=== PATIENT | male | born 1965 | race Caucasian/White ===

== ENCOUNTER 2019-12-06 11:02 | Inpatient (IN) | payer BC, SELFPAY ==
[2019-12-06 11:03] VITALS: BP 150/104; PULSE 103; RESP 16; TEMP 36.3; O2SAT 100; BMI 21.7
--- NOTE | 2019-12-06 11:28 | ED.VISSUMM ---
- ER Visit Summary Date of Service: 12/06/19 Chief Complaint: Requesting detox for alcoholism History of Present Illness: The patient is a [address] of alcohol abuse this is 4-6 shots per day. Denies ever being in detox. He was going to go through detox at [place] and left AGAINST MEDICAL ADVICE. Patient denies other complaints. He denies any nausea or vomiting or melena. Physical Examination: Middle-aged male no acute distress vital signs are stable afebrile. H EENT exam unremarkable. Neck nontender no lymphadenopathy. Lungs clear to auscultation bilaterally. Heart regular rhythm rate about 100. Abdomen soft nontender normal bowel sounds no peritoneal signs. Patient moving all 4 extremities. Neurovascular intact. Nontender. No edema. Neurologically is awake and alert with no focal motor deficits. Test Results: None Emergency Department Course and Treatment: Patient requesting inpatient detox for alcohol abuse. Treatment Plan: Hospitalist on page for admission. Disposition: Admission for detox Impression: Requesting inpatient detox for alcohol abuse This note was generated with [employer] dictation software. It may contain incorrect words, spelling, and punctuation that were not noted in review of the chart prior to signing
[2019-12-06 12:30] VITALS: BP 150/104; PULSE 103; RESP 16; TEMP 36.3; O2SAT 100
[2019-12-06 12:50] VITALS: BMI 20.9; BMI 21.0
[2019-12-06 13:07] LABS: Amphetamine Urine VISTA NEGATIVE (<1000 ng/mL); Barbiturate Urine VISTA POSITIVE (< 200 ng/mL); Benzodiazepine Urine VISTA NEGATIVE (< 200 ng/mL); Cocaine Urine VISTA NEGATIVE (< 300 ng/mL); Ecstacy Urine VISTA NEGATIVE (< 500 ng/mL); Methadone Urine VISTA NEGATIVE (< 300 ng/mL); PCP Urine VISTA NEGATIVE (< 25 ng/mL); THC Urine VISTA NEGATIVE (< 50 ng/mL); Vista UDS pH Range 5
[2019-12-06 13:38] VITALS: BP 151/92; PULSE 82; RESP 16; TEMP 36.7; O2SAT 100
[2019-12-06] MEDS: Phenobarbital 32.4 MG Tablet 64.8 MG PO ×3 (13:44→21:26)
--- NOTE | 2019-12-06 14:42 | HP.PCM_ITS ---
History of Present Illness Date of Admission: 12/06/19 Chief Complaint: EtOH withdrawal The patient is a 54 year old M with no significant past medical history presents for alcohol withdrawal and requesting detox. He drinks about 4-6 shots of vodka or tequila a day. He states that he has been a function alcoholic since his teenage years, his father was also a drinker though never considered to be an alcoholic. He states that he started drinking as a teenager because that is what they did at home and he would drink with his friends. He says that he is always been a drinker socially, never in isolation except for the last couple months. He was from his 2 years ago because of the drinking, she used to drink with him a lot and then she stopped. What caused him to have to go into rehab is because since coronavirus hit he has been working from home and it is been harder to stay away from the alcohol therefore the amount of alcohol that he has been drinking has increased. Because of this they have noticed a decrease in his quality of work and therefore discussion with his boss at request that he undergo rehab. He had tried to go to detox at [place] last week however he left [facility] because there is no TV in his room, and he had a roommate. He presents to the [facility] to undergo detox again. He states that he is only 1 time tried give up drinking and on day 3 of that attempt he had a seizure. Past Medical History Allergies No Known Allergies Allergy (Verified 12/06/19 11:05) Home Medications: Ambulatory Orders Medication Instructions Recorded Glucosam/Chond/Hyalu/Cf Borate 3 ea PO DAILY 12/06/19 [Move Free Joint Health Tablet] Ibuprofen 600 mg PO PRN PRN 12/06/19 Omeprazole Magnesium [Prilosec Otc] 20 mg PO DAILY 12/06/19 Surgical History: arthroscopy, knee, herniorrhaphy Smoking Status: Current every day smoker Tobacco Use: Cigarettes Alcohol: Heavy Drugs: None - *Family History Paternal History Items: Cancer Maternal History Items: Heart Disease, Hypertension Review of Systems Constitutional: Denies: Chills, Fever, Weight Change HEENT: Denies: Head Aches, Sinus Congestion, Sinus Drainage Cardiovascular: Denies: Chest Pain, Palpitations Respiratory: Denies: Cough, Shortness of breath at rest, Sputum production Gastrointestinal: Denies: Abdominal Pain, Nausea, Vomiting Genitourinary: Denies: Dysuria Musculoskeletal: Denies: Joint Pain, Joint Tenderness Skin: Denies: Rash, Wounds Neurological: Reports: Tremor. Denies: Focal weakness, Numbness, Tingling Psychiatric: Reports: Anxiety. Denies: Depression Hematologic/ Lymphatic: Denies: Easy Bruising, Easy Bleeding VTE Information - Inpt Only VTE Present on Admission: No - Physical Exam Vitals/I&O's: Vital Signs Temp Pulse Resp BP Pulse Ox 98.1 F 82 16 151/92 H 100 12/06/19 13:38 12/06/19 13:38 12/06/19 13:38 12/06/19 13:38 12/06/19 13:38 Oxygen Delivery Method Room Air Weight: 129 lb 13.636 oz Body Mass Index (BMI) 20.9 General: Alert, Oriented x3, Cooperative, No apparent distress HEENT: Atraumatic, PERRLA, EOMI, Normocephalic Oral: Moist Mucosa Neck: Supple, No JVD Lungs: Clear to auscultation, Normal air movement, No rhonchi, No wheeze, No rales Cardiovascular: Regular rate, Regular Rhythm, Normal S1, Normal S2, No murmurs Abdomen: Soft, Non Tender, Non-Distended, No Hepato-splenomegaly Extremities: No edema, Capillary Refill Less than 3 Seconds Skin: No rashes, No breakdown Neurological: Neuro grossly intact, Sensory exam intact to light touch and pain Psych/Mental Status: Anxious, Restless Laboratory Results 12/06/19 12:00: Urine Opiates Screen NEGATIVE, Urine Methadone Screen NEGATIVE, Ur Barbiturates Screen POSITIVE H, Ur Phencyclidine Scrn NEGATIVE, Ur Amphetamin es Screen NEGATIVE, U Methamphetamin-MDMA NEGATIVE, U Benzodiazepines Scrn NEGATIVE, Urine Cocaine Screen NEGATIVE, U Cannabinoids Screen NEGATIVE, Ur Drug Screen Comment Current Medications Acetaminophen (Tylenol) 650 mg PO Q6H PRN PRN PRN Reason: Pain Score 1-10/Temp > 100.7 F Dicyclomine HCl (Bentyl) 20 mg PO Q6H PRN PRN PRN Reason: abdominal discomfort Folic Acid (Folic Acid) 1 mg PO DAILY@0800 [facility] Gabapentin (Neurontin) 300 mg PO Q8H PRN PRN PRN Reason: moderate to severe anxiety Hydroxyzine Pamoate (Vistaril Pamoate Capsule) 50 mg PO Q4H PRN PRN PRN Reason: mild anxiety Loperamide HCl (Imodium) 2 mg PO Q4H PRN PRN PRN Reason: LOOSE STOOLS Melatonin (Melatonin) 3 mg PO QHS PRN PRN PRN Reason: INSOMNIA Ondansetron HCl (Zofran) 8 mg PO Q8H PRN PRN PRN Reason: NAUSEA Phenobarbital (Phenobarbital) 97.2 mg PO Q4H [facility]; Taper Stop: 12/10/19 21:59 Last Admin: 12/06/19 13:44 Dose: 97.2 mg Documented by: Thiamine HCl (Vitamin B1) 100 mg PO DAILYCM [facility] Trazodone HCl (Desyrel) 100 mg PO QHS PRN PRN Reason: INSOMNIA Assessment/Plan 1. Acute alcohol withdrawal/tobacco abuse -Currently with a CIWA of 4 -Continue with a phenobarb taper in the alcohol withdrawal protocol -He does smoke 4 to 5 cigarettes a day, but does not think he will need a nicotine patch. We did discuss cessation DVT: Ambulation Inpatient E&M: 30784 Init Hosp L2
--- NOTE | 2019-12-06 16:07 | ADDICTION ---
This copy writer met with patient in his room. He was alert/oriented x4 and presented with euthymic mood and affect. He behaved appropriately and participated minimally, but appropriately. He reported that he is not interested in follow-up treatment noting that I'm going to live with my parents. This copy writer attempted to engage patient in conversation regarding follow up treatment as he reported that his father drinks alcohol daily but patient noted He drinks tequila and I drink vodka so it'll be fine. This copy writer completed ASAM, AUDIT and MSE and will fax documentation to [facility].
[2019-12-06 18:00] VITALS: BP 145/93; PULSE 106; RESP 16; TEMP 36.9; O2SAT 100
[2019-12-06 21:24] VITALS: BP 141/86; PULSE 83; RESP 18; TEMP 36.8; O2SAT 97
[2019-12-06] MEDS: traZODone 100 MG Tablet PO (21:26)
[2019-12-07] MEDS: Phenobarbital 32.4 MG Tablet 64.8 MG PO ×6 (01:40→21:31)
[2019-12-07 01:43] VITALS: BP 131/79; PULSE 78; RESP 18; TEMP 36.9; O2SAT 100
[2019-12-07] MEDS: Acetaminophen 325 MG Tablet 650 MG PO (05:19)
[2019-12-07 05:21] VITALS: BP 124/80; PULSE 68; RESP 16; TEMP 36.7; O2SAT 99
[2019-12-07 08:29] VITALS: BP 126/83; PULSE 76; RESP 18; TEMP 36.6; O2SAT 100
[2019-12-07] MEDS: Folic Acid 1 MG Tablet PO (08:32)
[2019-12-07] MEDS: Thiamine Hydrochloride 100 MG Tablet PO (08:32)
[2019-12-07] MEDS: hydrOXYzine PAM 25 MG Capsule 50 MG PO ×4 (08:34→21:31)
--- NOTE | 2019-12-07 08:39 | PCM.PN.HOSP ---
Subjective: Doing well, no issues overnight Vitals/I&O's: Vital Signs Temp Pulse Resp BP Pulse Ox 97.9 F 76 18 126/83 H 100 12/07/19 08:29 12/07/19 08:29 12/07/19 08:29 12/07/19 08:29 12/07/19 08:29 Oxygen Delivery Method Room Air Weight: 129 lb 13.636 oz Body Mass Index (BMI) 20.9 Intake and Output for Last 24 Hours 12/05/19 12/06/19 12/07/19 23:59 23:59 23:59 Intake Total 1100 / 1100 Balance 1100 / 1100 General: Alert, Oriented x3, Cooperative, No apparent distress HEENT: Atraumatic, PERRLA, EOMI, Normocephalic Oral: Moist Mucosa Neck: Supple, No JVD Lungs: Clear to auscultation, Normal air movement, No rhonchi, No wheeze, No rales Cardiovascular: Regular rate, Regular Rhythm, Normal S1, Normal S2, No murmurs Abdomen: Soft, Non Tender, Non-Distended, No Hepato-splenomegaly Extremities: No edema, Capillary Refill Less than 3 Seconds Skin: No rashes, No breakdown Neurological: Neuro grossly intact, Sensory exam intact to light touch and pain Psych/Mental Status: Normal affect, appropriate Laboratory Results 12/06/19 12:00: Urine Opiates Screen NEGATIVE, Urine Methadone Screen NEGATIVE, Ur Barbiturates Screen POSITIVE H, Ur Phencyclidine Scrn NEGATIVE, Ur Amphetamines Screen NEGATIVE, U Methamphetamin-MDMA NEGATIVE, U Benzodiazepines Scrn NEGATIVE, Urine Cocaine Screen NEGATIVE, U Cannabinoids Screen NEGATIVE, Ur Drug Screen Comment Current Medications Acetaminophen (Tylenol) 650 mg PO Q6H PRN PRN PRN Reason: Pain Score 1-10/Temp > 100.7 F Last Admin: 12/07/19 05:19 Dose: 650 mg Documented by: Dicyclomine HCl (Bentyl) 20 mg PO Q6H PRN PRN PRN Reason: abdominal discomfort Folic Acid (Folic Acid) 1 mg PO DAILY@0800 [facility] Last Admin: 12/07/19 08:32 Dose: 1 mg Documented by: Gabapentin (Neurontin) 300 mg PO Q8H PRN PRN PRN Reason: moderate to severe anxiety Hydroxyzine Pamoate (Vistaril Pamoate Capsule) 50 mg PO Q4H PRN PRN PRN Reason: mild anxiety Last Admin: 12/07/19 08:34 Dose: 50 mg Documented by: Loperamide HCl (Imodium) 2 mg PO Q4H PRN PRN PRN Reason: LOOSE STOOLS Melatonin (Melatonin) 3 mg PO QHS PRN PRN PRN Reason: INSOMNIA Ondansetron HCl (Zofran) 8 mg PO Q8H PRN PRN PRN Reason: NAUSEA Phenobarbital (Phenobarbital) 97.2 mg PO Q4H [facility]; Taper Stop: 12/10/19 21:59 Last Admin: 12/07/19 05:19 Dose: 97.2 mg Documented by: Thiamine HCl (Vitamin B1) 100 mg PO DAILYCM [facility] Last Admin: 12/07/19 08:32 Dose: 100 mg Documented by: Trazodone HCl (Desyrel) 100 mg PO QHS PRN PRN Reason: INSOMNIA Last Admin: 12/06/19 21:26 Dose: 100 mg Documented by: STROKE Vital Signs/Narrative: Vital Signs Temp Pulse Resp BP Pulse Ox 12/07/19 08:29 97.9 F 76 18 126/83 H 100 12/07/19 05:21 98.1 F 68 16 124/80 H 99 Medical Necessity - Tobacco Use Smoking Status: Current every day smoker Tobacco Use: Cigarettes Assessment/Plan 1. Acute alcohol withdrawal/tobacco abuse -Currently with a CIWA of 4 -Continue with a phenobarb taper in the alcohol withdrawal protocol -He does smoke 4 to 5 cigarettes a day, but does not think he will need a nicotine patch. We did discuss cessation DVT: Ambulation Inpatient E&M: 97417 Subs Hosp L2
[2019-12-07 14:09] VITALS: BP 114/74; PULSE 77; RESP 16; TEMP 36.3; O2SAT 98
[2019-12-07 17:54] VITALS: BP 119/82; PULSE 74; RESP 16; TEMP 36.6; O2SAT 100
[2019-12-07 21:28] VITALS: BP 112/72; PULSE 71; RESP 16; TEMP 36.7; O2SAT 97
[2019-12-07] MEDS: traZODone 100 MG Tablet PO (21:31)
[2019-12-08 02:00] VITALS: BP 128/87; PULSE 72; RESP 16; TEMP 36.7; O2SAT 100
[2019-12-08] MEDS: Phenobarbital 32.4 MG Tablet 64.8 MG PO ×6 (02:14→21:22)
[2019-12-08] MEDS: hydrOXYzine PAM 25 MG Capsule 50 MG PO ×4 (02:15→21:22)
[2019-12-08] MEDS: Folic Acid 1 MG Tablet PO (07:38)
[2019-12-08] MEDS: Thiamine Hydrochloride 100 MG Tablet PO (07:38)
[2019-12-08 07:41] VITALS: BP 121/84; PULSE 77; RESP 16; TEMP 36.7; O2SAT 100
--- NOTE | 2019-12-08 08:57 | ADDICTION ---
Patient requested to meet with this justowriter operator to schedule appointment with Becki for follow up after completing medical withdrawal management tomorrow 12/08/2019. He is scheduled for an initial appointment on 12/14/2019 which is the first available appointment. He is amiable to this appointment time and date. He is considering attending AA meetings but is not able to commit to this at this time.
--- NOTE | 2019-12-08 09:32 | PN_ITS ---
Subjective: Doing well, no issues overnight Vitals/I&O's: Vital Signs Temp Pulse Resp BP Pulse Ox 98.0 F 77 16 121/84 H 100 12/08/19 07:41 12/08/19 07:41 12/08/19 07:41 12/08/19 07:41 12/08/19 07:41 Oxygen Delivery Method Room Air Weight: 129 lb 13.636 oz Body Mass Index (BMI) 20.9 Intake and Output for Last 24 Hours 12/06/19 12/07/19 12/08/19 23:59 23:59 23:59 Intake Total 2049 900 / 900 Balance 2049 900 / 900 General: Alert, Oriented x3, Cooperative, No apparent distress HEENT: Atraumatic, PERRLA, EOMI, Normocephalic Oral: Moist Mucosa Neck: Supple, No JVD Lungs: Clear to auscultation, Normal air movement, No rhonchi, No wheeze, No rales Cardiovascular: Regular rate, Regular Rhythm, Normal S1, Normal S2, No murmurs Abdomen: Soft, Non Tender, Non-Distended, No Hepato-splenomegaly Extremities: No edema, Capillary Refill Less than 3 Seconds Skin: No rashes, No breakdown Neurological: Neuro grossly intact, Sensory exam intact to light touch and pain Psych/Mental Status: Normal affect, appropriate Current Medications Acetaminophen (Tylenol) 650 mg PO Q6H PRN PRN PRN Reason: Pain Score 1-10/Temp > 100.7 F Last Admin: 12/07/19 05:19 Dose: 650 mg Documented by: Dicyclomine HCl (Bentyl) 20 mg PO Q6H PRN PRN PRN Reason: abdominal discomfort Folic Acid (Folic Acid) 1 mg PO DAILY@0800 [facility] Last Admin: 12/08/19 07:38 Dose: 1 mg Documented by: Gabapentin (Neurontin) 300 mg PO Q8H PRN PRN PRN Reason: moderate to severe anxiety Hydroxyzine Pamoate (Vistaril Pamoate Capsule) 50 mg PO Q4H PRN PRN PRN Reason: mild anxiety Last Admin: 12/08/19 06:21 Dose: 50 mg Documented by: Loperamide HCl (Imodium) 2 mg PO Q4H PRN PRN PRN Reason: LOOSE STOOLS Melatonin (Melatonin) 3 mg PO QHS PRN PRN PRN Reason: INSOMNIA Ondansetron HCl (Zofran) 8 mg PO Q8H PRN PRN PRN Reason: NAUSEA Phenobarbital (Phenobarbital) 64.8 mg PO Q4H [facility]; Taper Stop: 12/10/19 21:59 Last Admin: 12/08/19 06:21 Dose: 64.8 mg Documented by: Thiamine HCl (Vitamin B1) 100 mg PO DAILYCM [facility] Last Admin: 12/08/19 07:38 Dose: 100 mg Documented by: Trazodone HCl (Desyrel) 100 mg PO QHS PRN PRN Reason: INSOMNIA Last Admin: 12/07/19 21:31 Dose: 100 mg Documented by: STROKE Vital Signs/Narrative: Vital Signs Temp Pulse Resp BP Pulse Ox 12/08/19 07:41 98.0 F 77 16 121/84 H 100 Medical Necessity - Tobacco Use Smoking Status: Current every day smoker Tobacco Use: Cigarettes Assessment/Plan 1. Acute alcohol withdrawal/tobacco abuse -Currently with a CIWA of 4 -Continue with a phenobarb taper in the alcohol withdrawal protocol -He does smoke 4 to 5 cigarettes a day, but does not think he will need a nicotine patch. We did discuss cessation DVT: Ambulation Inpatient E&M: 22158 Subs Hosp L2
[2019-12-08 13:43] VITALS: BP 108/77; PULSE 81; RESP 16; TEMP 36.6; O2SAT 96
[2019-12-08] MEDS: Gabapentin 300 MG Capsule PO (13:49)
[2019-12-08] MEDS: Acetaminophen 325 MG Tablet 650 MG PO (13:50)
[2019-12-08 17:54] VITALS: BP 126/81; PULSE 71; RESP 16; TEMP 36.6; O2SAT 97
[2019-12-08] MEDS: traZODone 100 MG Tablet PO (21:22)
[2019-12-09] MEDS: Phenobarbital 32.4 MG Tablet 64.8 MG PO ×2 (03:55→08:49)
[2019-12-09 04:00] VITALS: BP 113/76; PULSE 72; RESP 16; TEMP 36.3; O2SAT 94
[2019-12-09] MEDS: hydrOXYzine PAM 25 MG Capsule 50 MG PO (04:00)
--- NOTE | 2019-12-09 07:13 | PCM.DC ---
You will use the following diet at home:: Regular Your food should be the consistency of: Regular Your liquids should be the consistency of: Regular/Thin Discharge Activity: Return to Normal Activity Call your doctor if you observe: Fever of 101 or Higher, Shortness of breath, Dizziness, Fainting spells, Swelling in the ankles, Chest pain, Increased palpitations (irregular heartbeat) Allergies/Adverse Reactions: Allergies No Known Allergies Allergy (Verified 12/06/19 11:05) Medications to take at Discharge Glucosam/Chond/Hyalu/Cf Borate [Move Free Joint Health Tablet] 3 ea PO DAILY 12/06/19 Ibuprofen 600 mg PO PRN PRN 12/06/19 Omeprazole Magnesium [Prilosec Otc] 20 mg PO DAILY 12/06/19 Primary Care Physician: Marianne Olivares NP-C [Primary Care Provider] - Please follow up with your Primary Care Physician in: 3-5 days Test Results: Test results from this visit will be discussed in further detail at your follow-up appointment, if applicable. Please Follow Up With: 180 When: Friday
--- NOTE | 2019-12-09 07:13 | PCM.DC.SUM ---
Discharge Date and Diagnosis Date of Admission: 12/06/19 Date of Discharge: 12/09/19 Hospital Course and Treatment Imaging Results: None Consults: 180 Operations: None Procedures: None Summary of Care Provided: Per HPI: The patient is a 54 year old M with no significant past medical history presents for alcohol withdrawal and requesting detox. He drinks about 4-6 shots of vodka or tequila a day. He states that he has been a function alcoholic since his teenage years, his father was also a drinker though never considered to be an alcoholic. He states that he started drinking as a teenager because that is what they did at home and he would drink with his friends. He says that he is always been a drinker socially, never in isolation except for the last couple months. He was from his 2 years ago because of the drinking, she used to drink with him a lot and then she stopped. What caused him to have to go into rehab is because since coronavirus hit he has been working from home and it is been harder to stay away from the alcohol therefore the amount of alcohol that he has been drinking has increased. Because of this they have noticed a decrease in his quality of work and therefore discussion with his boss at request that he undergo rehab. He had tried to go to detox at [place] last week however he left [facility] because there is no TV in his room, and he had a roommate. He presents to the [facility] to undergo detox again. He states that he is only 1 time tried give up drinking and on day 3 of that attempt he had a seizure. Hospital Course: 1. Acute alcohol withdrawal/tobacco [id number]-old male presents to the hospital with alcohol withdrawal. He states that since working from home with coronavirus yesterday drinking more which has caused his work to suffer. States that he is feeling much better and has an appointment with 180 on Friday. His CIWA was a 0-1 today and he would like to go home. I discussed with him the plan for discharge today and he expressed understanding of the risks and benefits. - Physical Exam Vitals/I&O's: Vital Signs Temp Pulse Resp BP Pulse Ox 97.4 F L 72 16 113/76 94 12/09/19 04:00 12/09/19 04:00 12/09/19 04:00 12/09/19 04:00 12/09/19 04:00 Oxygen Delivery Method Room Air Weight: 129 lb 13.636 oz Body Mass Index (BMI) 20.9 Intake and Output for Last 24 Hours 12/07/19 12/08/19 12/09/19 23:59 23:59 23:59 Intake Total 2049 Balance 2049 General: Alert, Oriented x3, Cooperative, No apparent distress HEENT: Atraumatic, PERRLA, EOMI, Normocephalic Oral: Moist Mucosa Neck: Supple, No JVD Lungs: Clear to auscultation, Normal air movement, No rhonchi, No wheeze, No rales Cardiovascular: Regular rate, Regular Rhythm, Normal S1, Normal S2, No murmurs Abdomen: Soft, Non Tender, Non-Distended, No Hepato-splenomegaly Extremities: No edema, Capillary Refill Less than 3 Seconds Skin: No rashes, No breakdown Neurological: Neuro grossly intact, Sensory exam intact to light touch and pain Psych/Mental Status: Normal affect, appropriate Current Medications Acetaminophen (Tylenol) 650 mg PO Q6H PRN PRN PRN Reason: Pain Score 1-10/Temp > 100.7 F Last Admin: 12/08/19 13:50 Dose: 650 mg Documented by: Dicyclomine HCl (Bentyl) 20 mg PO Q6H PRN PRN PRN Reason: abdominal discomfort Folic Acid (Folic Acid) 1 mg PO DAILY@0800 [facility] Last Admin: 12/08/19 07:38 Dose: 1 mg Documented by: Gabapentin (Neurontin) 300 mg PO Q8H PRN PRN PRN Reason: moderate to severe anxiety Last Admin: 12/08/19 13:49 Dose: 300 mg Documented by: Hydroxyzine Pamoate (Vistaril Pamoate Capsule) 50 mg PO Q4H PRN PRN PRN Reason: mild anxiety Last Admin: 12/09/19 04:00 Dose: 50 mg Documented by: Loperamide HCl (Imodium) 2 mg PO Q4H PRN PRN PRN Reason: LOOSE STOOLS Melatonin (Melatonin) 3 mg PO QHS PRN PRN PRN Reason: INSOMNIA Ondansetron HCl (Zofran) 8 mg PO Q8H PRN PRN PRN Reason: NAUSEA Phenobarbital (Phenobarbital) 64.8 mg PO Q6H [facility]; Taper Stop: 12/10/19 21:59 Last Admin: 12/09/19 03:55 Dose: 64.8 mg Documented by: Thiamine HCl (Vitamin B1) 100 mg PO DAILYCM [facility] Last Admin: 12/08/19 07:38 Dose: 100 mg Documented by: Trazodone HCl (Desyrel) 100 mg PO QHS PRN PRN Reason: INSOMNIA Last Admin: 12/08/19 21:22 Dose: 100 mg Documented by: Discharge Activity: Return to Normal Activity Call your doctor if you observe: Fever of 101 or Higher, Shortness of breath, Dizziness, Fainting spells, Swelling in the ankles, Chest pain, Increased palpitations (irregular heartbeat) Home Medications: Medications to take at Discharge Glucosam/Chond/Hyalu/Cf Borate [Move Free Joint Health Tablet] 3 ea PO DAILY 12/06/19 Ibuprofen 600 mg PO PRN PRN 12/06/19 Omeprazole Magnesium [Prilosec Otc] 20 mg PO DAILY 12/06/19 Primary Care Physician: Marianne Olivares NP-C [Primary Care Provider] - Please follow up with your Primary Care Physician in: 3-5 days Please Follow Up With: 180 When: Friday Disposition: Home Minutes spent on discharge:: 35 Patient Condition:: Stable Medical Necessity - Tobacco Use Smoking Status: Current every day smoker Tobacco Use: Cigarettes Meaningful Use Info Meaningful Use Diagnoses (Choose all that apply): None applicable Inpatient E&M: 77524 Disch Hosp
[2019-12-09 08:47] VITALS: BP 116/72; PULSE 85; RESP 18; TEMP 36.9; O2SAT 100
[2019-12-09] MEDS: Folic Acid 1 MG Tablet PO (08:49)
[2019-12-09] MEDS: Thiamine Hydrochloride 100 MG Tablet PO (08:49)
== END 2019-12-09 09:25 | disposition home or self-care (01) | DRG 897 ==
LOC: ED 11:37 → MS3 11:52
PROVIDERS: Admitting Provider Family Medicine; Emergency Provider Emergency Medicine; PCP Registered Nurse; Visit Provider Family Medicine
DX: F10.239 Alcohol dependence with withdrawal, unspecified (principal); F17.210 Nicotine dependence, cigarettes, uncomplicated; Z82.49 Family history of ischemic heart disease and other diseases of the circulatory system; Y90.9 Presence of alcohol in blood, level not specified
CPT/HCPCS: 80307; 99283; 99406

== ENCOUNTER 2020-08-31 12:27 | Inpatient (IN) | payer OTHER, SELFPAY ==
[2019-12-06 12:50] VITALS: BMI 20.9
[2020-08-31] VITALS (8 sets, daily range): BP systolic 117–149; BP diastolic 69–97; PULSE 92–116; RESP 16–18; TEMP 35.3–37.3; O2SAT 99–100; BMI 20.9; BMI 21.9
--- NOTE | 2020-08-31 12:55 | EKG12_ITS ---
Test Reason : DETOX Blood Pressure : / mmHG Vent. Rate : 092 BPM Atrial Rate : 092 BPM P-R Int : 134 ms QRS Dur : 084 ms QT Int : 370 ms P-R-T Axes : 050 -14 -04 degrees QTc Int : 457 ms Normal sinus rhythm Nonspecific ST abnormality Abnormal ECG Confirmed by DIRK CASTREJON, JAMES ([id number]), commercial production editor JAMILA KIRBY ([id number]) on 09/04/2020 2:54:13 PM Referred By: Confirmed By:JAMES CAVAZOS MD
--- NOTE | 2020-08-31 12:55 | CT_ITS ---
STUDY: CT BRAIN WITHOUT CONTRAST REASON FOR EXAM: Male, 54 years old. Fall due to dizziness. RADIATION DOSAGE (If Supplied By Facility): CTDIvol = ( 44.99 ) mGy, DLP = ( 796.11 ) mGycm TECHNIQUE: Transaxial CT imaging of the brain was performed without administration of intravenous contrast material. Individualized dose optimization techniques were used for this CT. COMPARISON: No relevant priors. FINDINGS: Normal soft tissue structures. Normal calvarium. There is mild cerebral atrophy with widening of the extra-axial spaces and ventricular dilatation. Normal white matter tracts of the cerebral hemispheres. Normal basal ganglia and thalami. Normal brainstem. Normal cerebellum. There is no intracranial hemorrhage. There are no findings of an acute ischemic infarction. Normal visualized paranasal sinuses. CT/Brain/Head without Contrast IMPRESSION: Chronic involutional changes of the brain. Electronically Signed: Abram Kahn MD at 14:19 EDT , Service support ,
--- NOTE | 2020-08-31 13:10 | EDS_ITS ---
HPI History of Present Illness Chief Complaint: Substance Abuse Narrative Narrative: 54-year-old male presenting with dizziness requesting alcohol detox. Patient states he was trying to find the main entrance to the hospital felt dizzy and fell. He denies loss of consciousness. Denies chest pain or shortness of breath. States his last drink was yesterday. He drinks 5-6 shots of vodka per day. Denies drug use. PFSH PFSH Medical History ETOH abuse Home Medications [id number]-btrki-aetqz-CF borate 3 ea PO DAILY 12/06/19 [History Last Taken 12/06/19] ibuprofen 600 mg PO PRN PRN 12/06/19 [History Last Taken 11/06/19] omeprazole magnesium 20 mg PO DAILY 12/06/19 [History Last Taken 12/06/19] Allergy/AdvReac Type Severity Reaction Status Date / Time No Known Allergies Allergy Verified 08/31/20 12:28 Surgical History History of appendectomy Social History Smoking Status: Current every day smoker ROS ROS ED Constitutional Constitutional ED: Denies fever(s) Eyes Eyes: Denies change in vision ENT ENT ED: Denies rhinorrhea or sore throat Cardiovascular Cardiovascular: Denies chest pain or palpitations Respiratory/Chest Respiratory/Chest: Denies cough or dyspnea Gastrointestinal Gastrointestinal: Denies abdominal pain, diarrhea, nausea or vomiting Genitourinary Genitourinary ED: Denies dysuria Musculoskeletal Musculoskeletal: Denies myalgias Integumentary Denies rash Neurologic Neurologic: Denies headache(s) Psychiatric Psychiatric: Denies suicidal thoughts EXAM Physical Exam Const Vital Signs: 08/31/20 12:28 08/31/20 15:57 Temperature 95.6 F L Temperature Source Temporal Pulse Rate 116 H 94 Respiratory Rate 18 Blood Pressure 117/87 H 149/97 H Blood Pressure Mean 97 114 Pulse Ox 99 100 Oxygen Delivery Method Room Air Room Air Positive well nourished and well developed General Appearance ED: well developed HEENT Reports normocephalic and head/scalp atraumatic Eyes PERRL and EOMs intact bilaterally General Eye ED: Yes scleral icterus Neck supple General: Negative for tenderness Chest Wall inspection of chest normal Resp normal respiratory effort and clear to auscultation bilaterally Cardio regular rate and regular rhythm GI non-tender and non-distended Palpation: soft; Negative for guarding or rebound tenderness present no CVA tenderness Extremity normal to inspection Neuro oriented x3 Sensorium / Orientation: alert Psych mental status grossly normal Skin General Skin Exam: jaundice MDM MDM MDM Narrative Medical decision making narrative: Patient has jaundice and scleral icterus. He does not recall how long this has been going on. He states he does not look in the mirror. He states his last drink was yesterday. Lab work shows metabolic acidosis and elevated liver enzymes. Discussed with hospitalist who recommends CT abdomen pelvis before admission. Patient will be signed out to the oncoming physician. Lab Data Attestation: I reviewed the patient's lab results. Labs: Laboratory Results - last 24 hr 08/31/20 08/31/20 08/31/20 13:30 13:30 13:30 WBC 6.8 RBC 2.77 L Hgb 9.7 L Hct 29.4 L MCV 106.1 H MCH 35.0 H MCHC 33.0 RDW Std Deviation 72.0 H RDW Coeff of Adia 18.4 H Plt Count 156 MPV 10.3 Immature Gran % (Auto) 4.700 H Neut % (Auto) 73.0 H Lymph % (Auto) 10.2 L [place] % (Auto) 10.5 H Eos % (Auto) 0.1 Baso % (Auto) 1.5 H Absolute Neuts (auto) 5.0 Absolute Lymphs (auto) 0.70 L Nucleated RBC % 0.6 Anisocytosis 1+ Sodium Cancelled Potassium Cancelled Chloride Cancelled Carbon Dioxide Cancelled Anion Gap Cancelled BUN Cancelled Creatinine Cancelled Estim Creat Clear Calc Cancelled Est GFR (MDRD) Af Amer Cancelled Est GFR (MDRD) Non-Af Cancelled BUN/Creatinine Ratio Cancelled Glucose Cancelled Calcium Cancelled Total Bilirubin Cancelled Direct Bilirubin Cancelled AST Cancelled ALT Cancelled Alkaline Phosphatase Cancelled Total Protein Cancelled Albumin Cancelled Globulin Cancelled Ethyl Alcohol 163.0 08/31/20 14:30 WBC RBC Hgb Hct MCV MCH MCHC RDW Std Deviation RDW Coeff of Adia Plt Count MPV Immature Gran % (Auto) Neut % (Auto) Lymph % (Auto) [place] % (Auto) Eos % (Auto) Baso % (Auto) Absolute Neuts (auto) Absolute Lymphs (auto) Nucleated RBC % Anisocytosis Sodium 133 L Potassium 3.1 L Chloride 93 L Carbon Dioxide 17.0 L Anion Gap 23 H BUN 8 Creatinine 0.74 Estim Creat Clear Calc 97.39 Est GFR (MDRD) Af Amer 143 Est GFR (MDRD) Non-Af 118 BUN/Creatinine Ratio 10.8 Glucose 67 L Calcium 7.7 L Total Bilirubin 11.20 H Direct Bilirubin 9.16 H AST 378 H ALT 60 Alkaline Phosphatase 177 H Total Protein 6.5 Albumin 2.3 L Globulin 4.2 Ethyl Alcohol Radiography Diagnostic Testing: Radiology Impression Brain CT 08/31/20 12:55 IMPRESSION: Chronic involutional changes of the brain. Electronically Signed: Abram Kahn MD at 14:19 EDT , Service support , EKG Initial EKG: Attestation: I personally reviewed and interpreted this EKG as follows: Interpretation: Sinus Rhythm and No Acute Injury Pattern Prior EKG tracings: not available for review Discharge Plan Triage Chief Complaint: Substance Abuse Other Complaint: Fall ED Provider: Minerva Coello Dx/Rx/DC Orders Clinical Impression: Alcohol dependence, Elevated liver enzymes Prescriptions: No Action ibuprofen 200 MG tablet 600 mg PO PRN PRN (Reason: Pain Or Fever) RF: 0 omeprazole magnesium 20 MG tablet,delayed release (DR/EC) 20 mg PO DAILY RF: 0 qqhcqopp-jjszk-gexly-CF borate 1 EACH tablet 3 ea PO DAILY RF: 0 Primary Care Provider: Marianne Olivares NP Referrals: Marianne Olivares NP, [employer] [Primary Care Provider] -
[2020-08-31] MEDS: 0.9% Normal Saline 1,000 ML 1000 ML IV (13:55)
[2020-08-31 14:10] LABS: Basophil% 1.5 % (0-1); Eosinophil# 0.01 X10^3/uL; Eosinophils% 0.1 % (0-5); Hematocrit 29.4 % (40-54); Hemoglobin 9.7 g/dL (13.0-16.5); Lymphocyte % 10.2 % (19-41); Mean Corpuscular Volume 106.1 fL (80-94); Mean Platelet Vol. 10.3 fl (6.2-12.0); Monocyte# 0.72 X10^3/uL; Monocyte% 10.5 % (0-10); NRBC Flagged by Analyzer 0.6 % (0-5); Neutrophil # 4.98 X10^3/uL (2.7-7.7); POSITIVE MORPHOLOGY YES; Platelet Count 156 K/mm3 (150-450); RBC Distribution Width CV 18.4 % (11.6-14.6); Red Blood Count 2.77 M/mm3 (4.6-6.2); White Blood Count 6.8 K/mm3 (4.4-11.0)
[2020-08-31 14:13] LABS: Differential Indicated SCAN CRITERIA MET
--- NOTE | 2020-08-31 14:16 | NURSING ---
NEED A NEW GREEN TOP, HEMOLIZED
[2020-08-31 14:42] LABS: Anisocytosis 1+
[2020-08-31 14:53] LABS: AST(SGOT) 378 U/L (15-37); Alanine Aminotransfer ALT/SGPT 60 U/L (16-61); Albumin, Serum 2.3 g/dL (3.2-5.0); Alkaline Phosphatase 177 U/L (45-117); Anion Gap 23 (5-15); BUN 8 mg/dL (7-18); BUN/Creat Ratio 10.8 RATIO (10-20); Bilirubin, Direct 9.16 mg/dL (0.00-0.30); Calcium,Total 7.7 mg/dL (8.5-10.1); Chloride 93 mmol/L (98-107); Creatinine, Serum 0.74 mg/dL (0.70-1.30); EST Glomerular Filtration Rate 118 mL/min (>60); Est Glom Filt Rate - Afr Amer 143 mL/min (>60); Estimated Creatinine Clearance 97.39 ml/min; Globulin 4.2 g/dL (2.2-4.2); Glucose 67 mg/dL (74-106); Potassium 3.1 mmol/L (3.5-5.1); Protein, Total 6.5 g/dL (6.4-8.2); Sodium Level 133 mmol/L (136-145)
--- NOTE | 2020-08-31 16:01 | CM.ED ---
Addendum entered by Alexandria Angel 08/31/20 21:01: YASMANI called Anderson at [facility] and advised that patient was admitted to [facility] program and room number. Alexandria STEPHENS Original Note: YASMANI Note YASMANI Referral: Case Find Alcohol Detox Reason for Referral: Patient wants [facility] program YASMANI met with patient. He indicated he is here to detox from alcohol. He reports he is familiar with the [facility] program. He stated he is aware of the program. Patient said he has never been in the [facility] program before. Patient was educated on contract, no visitors or phones. Patient verbalized understanding and again voiced desire for program. YASMANI called Rosa at [facility] and left a confidental voice mail for her about patient wanting [facility] but may need to be medically stable. YASMANI will continue to update. YASMANI will follow. Alexandria STEPHENS
--- NOTE | 2020-08-31 16:35 | CT_ITS ---
STUDY: CT ABDOMEN AND PELVIS WITH CONTRAST REASON FOR EXAM: Male, 54 years old. Jaundice. Abdominal pain. RADIATION DOSAGE (If Supplied By Facility): CTDIvol = ( 23.12 ) mGy, DLP = ( 561.43 ) mGycm TECHNIQUE: Transaxial images were obtained from the dome of the diaphragm to the symphysis pubis without oral contrast. IV 100mL Isovue-370 was administered. Sagittal and coronal images were reconstructed. Individualized dose optimization techniques were used for this CT. COMPARISON: None. FINDINGS: The visualized lung bases are unremarkable. The visualized portions of the heart are within normal limits. The liver is markedly enlarged and diffusely fatty infiltrated. There is no evidence of intrahepatic mass. The gallbladder is well distended. There is a single gallstone in the gallbladder fundus measuring 3 mm in diameter. There is no wall thickening or inflammatory change. There is no biliary ductal dilatation or choledocholithiasis. Normal spleen. Normal pancreas. Normal bilateral adrenal glands. Normal right kidney. Normal left kidney. Normal bilateral ureters. The stomach is nondistended with uniformly thickened kaplan. Normal small intestine. There is descending and sigmoid colon diverticuli. There is mild wall thickening and pericolonic stranding in the proximal sigmoid colon suggesting mild diverticulitis. Scattered diverticuli are seen in the more proximal colon without inflammatory change. There is non-visualization of the appendix. There is diffuse atherosclerotic calcification of the abdominal aorta, without a demonstrated aneurysm. Normal inferior vena cava. Normal retroperitoneum. Normal urinary bladder. Prostate is minimally enlarged. There is no pelvic lymphadenopathy. No free air or free fluid seen within the peritoneal cavity. Normal abdominal wall. There are diffuse degenerative changes of the visualized lumbar spine. CT/Abdomen/Pelvis W IV Cont ONLY IMPRESSION: 1. Mild sigmoid diverticulitis without complication. 2. Markedly enlarged fatty infiltrated liver without mass. 3. Thick-walled nondistended stomach. This will be better evaluated by endoscopy or upper GI if there is clinical suspicion for gastric abnormality. 4. Gallstones without acute cholecystitis. 5. Mildly enlarged prostate. 6. Atherosclerotic changes of the aorta. 7. Degenerative changes of the lumbar spine. Electronically Signed: Turner Roberts DO at 16:57 EDT Tel [phone], Service support ,
[2020-08-31 17:06] LABS: Amphetamine Urine VISTA NEGATIVE (<1000 ng/mL); Barbiturate Urine VISTA NEGATIVE (< 200 ng/mL); Benzodiazepine Urine VISTA NEGATIVE (< 200 ng/mL); Cocaine Urine VISTA NEGATIVE (< 300 ng/mL); Ecstacy Urine VISTA NEGATIVE (< 500 ng/mL); Methadone Urine VISTA NEGATIVE (< 300 ng/mL); PCP Urine VISTA NEGATIVE (< 25 ng/mL); THC Urine VISTA NEGATIVE (< 50 ng/mL); Vista UDS pH Range 6
--- NOTE | 2020-08-31 18:36 | PCM.HP.STD ---
Documented by User: Nicholas SMITH 08/31/20 19:03 HPI - General HPI Narrative Patient is a 54-year-old male who presents to the ED at [facility] on 08/31/2020 requesting medical stabilization for alcohol detoxification. Patient endorses a 40+ year drinking history, he currently drinks 5-6 shots per day of either tequila or vodka. Patient states that he does not drink any beer or wine. Patient states his last time drinking was yesterday. Denies any other illicit or prescription drug use. Of note, patient suffered a minor fall when trying to get to the ED today. Patient states that he was trying to find the main hospital entrance felt dizzy and fell. Patient denies any trauma related to the fall and states that he was close to an area of grass and when he began feeling dizzy he made his way over to the grass and laid himself down on the ground. Patient also endorses a 5-day history of having tea colored urine. CBC in the ED demonstrated a hemoglobin of 9.7. BMP demonstrated hyponatremia at 133 and hypokalemia at 3.1. Patient's T bili was mildly elevated at 11.2 and AST was 378. Urine toxicology was negative for any illicit substances. Ethyl alcohol still pending. Brain CT obtained in the ED demonstrated only chronic involutional changes of the brain and demonstrated no acute trauma. CT of the abdomen and pelvis demonstrated mild sigmoid diverticulitis without complication, markedly enlarged fatty liver without mass, gallstones without acute cholecystitis, mildly enlarged prostate atherosclerotic changes of the aorta and degenerative changes of the lumbar spine. Patient will be admitted for medical stabilization secondary to alcohol detox, as well as work-up for anemia and management of diverticulitis. PFSH Medical History ETOH abuse Home Medications [id number]-CF borate 3 ea PO DAILY 12/06/19 [History Last Taken 12/06/19] ibuprofen 600 mg PO PRN PRN 12/06/19 [History Last Taken 11/06/19] omeprazole magnesium 20 mg PO DAILY 12/06/19 [History Last Taken 12/06/19] Allergy/AdvReac Type Severity Reaction Status Date / Time No Known Allergies Allergy Verified 08/31/20 12:28 Surgical History History of appendectomy Social History Smoking Status: Current every day smoker ROS ROS Narrative See HPI. Constitutional Constitutional: Denies anorexia, change in weight, chills, fatigue, fever(s), malaise, night sweats, weakness or other Eyes Eyes: Denies blurry vision, change in eye color, change in vision, discharge from eye(s), double vision, erythema, eye pain, loss of vision or other ENT HEENT: Denies abnormal hearing, dysphagia, ear pain, epistaxis, headache(s), hearing loss, nasal congestion, nasal discharge, post nasal drip, sinus pressure, sore throat or other Cardiovascular Cardiovascular: Denies chest pain, claudication, dyspnea on exertion, edema, lightheadedness, orthopnea, palpitations, paroxysmal nocturnal dyspnea, rapid heart rate, syncope or other Respiratory/Chest Respiratory/Chest: Denies cough, dyspnea, excessive phlegm production, hemoptysis, productive cough, shortness of breath at rest, shortness of breath with exertion, wheezing or other Gastrointestinal Gastrointestinal: Denies abdominal pain, coffee ground emesis, constipation, diarrhea, dyspepsia, hematemesis, hematochezia, loose stools, melena, nausea, vomiting or other Genitourinary Genitourinary: Denies burning urination, difficulty urinating, dysuria, hematuria, nocturia, urinary frequency, urinary hesitancy, urinary incontinence, urinary urgency or other Musculoskeletal Musculoskeletal: Denies arthralgias, back pain, joint pain, joint stiffness, joint swelling, myalgias, neck pain or other Neurologic Neurologic: Denies abnormal gait, abnormal speech, confusion, disequilibrium, dizziness, focal weakness, headache(s), numbness, paresthesias, seizure-like activity, seizures, syncope, tingling, tremor(s) or other Psychiatric Psychiatric: Denies anxiety, depression, homicidal ideation, suicidal ideation or other Endocrine Endocrinology: Denies change in body appearance, cold intolerance, excessive sweating, heat intolerance, polydipsia, polyuria or other Hematologic/Lymphatic Hematologic/Lymphatic: Denies anemia, easy bleeding, easy bruising, lymphadenopathy or other Allergic/Immunologic Allergic/Immunologic: Denies rhinitis, hives, eczemia, asthma or other Vital Signs Vital Signs Vital Signs: 08/31/20 12:28 08/31/20 15:57 08/31/20 17:17 Temperature 95.6 F L Temperature Source Temporal Pulse Rate 116 H 94 Respiratory Rate 18 Blood Pressure 117/87 H 149/97 H 122/78 H Blood Pressure Mean 97 114 92 Pulse Ox 99 100 Oxygen Delivery Method Room Air Room Air 08/31/20 17:22 08/31/20 18:34 Temperature 99.1 F Temperature Source Oral Pulse Rate 101 H 93 Respiratory Rate 16 16 Blood Pressure 134/95 H Blood Pressure Mean 108 Pulse Ox 100 100 Oxygen Delivery Method Room Air Room Air Physical Exam Const alert, oriented x3 and no apparent distress General Appearance: cooperative HEENT normocephalic and head/scalp atraumatic HEENT Narrative: Dried blood on the scalp of the head due to patient scratching at scalp. No signs of trauma evident secondary to fall. Eyes PERRL and EOMs intact bilaterally Neck no lymphadenopathy, supple and no JVD Resp normal respiratory effort, no use of accessory muscles and clear to auscultation bilaterally Cardio regular rate, regular rhythm, no murmurs and no JVD GI normal to inspection, nondistended, normoactive bowel sounds, soft to palpation, non-tender and non-distended Extremity normal to inspection, full ROM and no clubbing, cyanosis or edema Skin no rashes or lesions noted, no wounds and no jaundice Neuro CN's II-XII intact bilaterally Psych affect normal Lab / Micro Data Result Diagrams: 08/31/20 13:30 08/31/20 14:30 Labs: Laboratory Results - last 24 hr 08/31/20 08/31/20 08/31/20 13:30 13:30 13:30 WBC 6.8 RBC 2.77 L Hgb 9.7 L Hct 29.4 L MCV 106.1 H MCH 35.0 H MCHC 33.0 RDW Std Deviation 72.0 H RDW Coeff of Adia 18.4 H Plt Count 156 MPV 10.3 Immature Gran % (Auto) 4.700 H Neut % (Auto) 73.0 H Lymph % (Auto) 10.2 L [place] % (Auto) 10.5 H Eos % (Auto) 0.1 Baso % (Auto) 1.5 H Absolute Neuts (auto) 5.0 Absolute Lymphs (auto) 0.70 L Nucleated RBC % 0.6 Anisocytosis 1+ Sodium Cancelled Potassium Cancelled Chloride Cancelled Carbon Dioxide Cancelled Anion Gap Cancelled BUN Cancelled Creatinine Cancelled Estim Creat Clear Calc Cancelled Est GFR (MDRD) Af Amer Cancelled Est GFR (MDRD) Non-Af Cancelled BUN/Creatinine Ratio Cancelled Glucose Cancelled Calcium Cancelled Total Bilirubin Cancelled Direct Bilirubin Cancelled AST Cancelled ALT Cancelled Alkaline Phosphatase Cancelled Total Protein Cancelled Albumin Cancelled Globulin Cancelled Urine Opiates Screen Urine Methadone Screen Ur Barbiturates Screen Ur Phencyclidine Scrn Ur Amphetamines Screen U Methamphetamin-MDMA U Benzodiazepines Scrn Urine Cocaine Screen U Cannabinoids Screen Ur Drug Screen Comment Ethyl Alcohol 163.0 Acetone Level 08/31/20 08/31/20 08/31/20 14:30 16:30 16:47 WBC RBC Hgb Hct MCV MCH MCHC RDW Std Deviation RDW Coeff of Adia Plt Count MPV Immature Gran % (Auto) Neut % (Auto) Lymph % (Auto) [place] % (Auto) Eos % (Auto) Baso % (Auto) Absolute Neuts (auto) Absolute Lymphs (auto) Nucleated RBC % Anisocytosis Sodium 133 L Potassium 3.1 L Chloride 93 L Carbon Dioxide 17.0 L Anion Gap 23 H BUN 8 Creatinine 0.74 Estim Creat Clear Calc 97.39 Est GFR (MDRD) Af Amer 143 Est GFR (MDRD) Non-Af 118 BUN/Creatinine Ratio 10.8 Glucose 67 L Calcium 7.7 L Total Bilirubin 11.20 H Direct Bilirubin 9.16 H AST 378 H ALT 60 Alkaline Phosphatase 177 H Total Protein 6.5 Albumin 2.3 L Globulin 4.2 Urine Opiates Screen NEGATIVE Urine Methadone Screen NEGATIVE Ur Barbiturates Screen NEGATIVE Ur Phencyclidine Scrn NEGATIVE Ur Amphetamines Screen NEGATIVE U Methamphetamin-MDMA NEGATIVE U Benzodiazepines Scrn NEGATIVE Urine Cocaine Screen NEGATIVE U Cannabinoids Screen NEGATIVE Ur Drug Screen Comment Ethyl Alcohol Acetone Level SMALL H Radiology Impression Brain CT 08/31/20 12:55 IMPRESSION: Chronic involutional changes of the brain. Electronically Signed: Abram Kahn MD at 14:19 EDT , Service support , Abdomen/Pelvis CT 08/31/20 16:35 IMPRESSION: 1. Mild sigmoid diverticulitis without complication. 2. Markedly enlarged fatty infiltrated liver without mass. 3. Thick-walled nondistended stomach. This will be better evaluated by endoscopy or upper GI if there is clinical suspicion for gastric abnormality. 4. Gallstones without acute cholecystitis. 5. Mildly enlarged prostate. 6. Atherosclerotic changes of the aorta. 7. Degenerative changes of the lumbar spine. Electronically Signed: Turner Roberts DO at 16:57 EDT Tel [phone], Service support , Assessment & Plan Assessment/Plan (1) Acute, mixed level of activity, alcohol withdrawal delirium: (2) Hyperbilirubinemia: (3) Sigmoid diverticulitis: (4) Alcohol intoxication: (5) Cholelithiasis: (6) Hypoglycemia: (7) Anemia: (8) Acute hypokalemia: (9) Alcohol dependence: (10) Hyponatremia: PLAN: Patient is a 54-year-old male who presents to the ED at [facility] on 08/31/2020 requesting medical stabilization for alcohol detoxification. Patient endorses a 40+ year drinking history, he currently drinks 5-6 shots per day of either tequila or vodka. Patient states that he does not drink any beer or wine. Of note, patient suffered a minor fall when trying to get to the ED today. Patient states that he was trying to find the main hospital entrance felt dizzy and fell. Patient denies any trauma related to the fall. My physical exam did not demonstrate any findings of acute trauma, however patient did have some dried blood on his scalp due to picking of sunburn related lesions on scalp. Patient also endorses a 5-day history of having tea colored urine. CBC in the ED demonstrated a hemoglobin of 9.7. BMP demonstrated hyponatremia at 133 and hypokalemia at 3.1. Patient's T bili was mildly elevated at 11.2 and AST was 378. Urine toxicology was negative for any illicit substances. Ethyl alcohol still pending. Brain CT obtained in the ED demonstrated only chronic involutional changes of the brain and demonstrated no acute trauma. CT of the abdomen and pelvis demonstrated mild sigmoid diverticulitis without complication, markedly enlarged fatty liver without mass, gallstones without acute cholecystitis, mildly enlarged prostate atherosclerotic changes of the aorta and degenerative changes of the lumbar spine. Patient will be admitted for medical stabilization secondary to alcohol detox, as well as work-up for anemia and management of diverticulitis. 1) alcohol abuse/medical stabilization/impending withdrawal Chronic alcohol abuse as above. Ethyl alcohol 163.0 mg/dL. Plan; phenobarbital taper initiated, Imodium as needed, Zofran as needed, Tylenol as needed, Vistaril as needed, Bentyl as needed, Neurontin as needed, folic acid ordered, thiamine ordered, multivitamin ordered, addiction medicine consult ordered. 2) Hypokalemia Currently 3.1. Likely secondary to chronic alcoholism. Plan; potassium repletion ordered, magnesium ordered, trend BMP. 3) Hyponatremia Currently 133. Likely secondary to chronic alcoholism. Plan; normal saline ordered, trend BMP. 4) Diverticulitis Sigmoid diverticulitis evident on CT of the abdomen/pelvis as above. No white count, patient denies fever, chills, N/V/D. Plan; Flagyl and ciprofloxacin ordered. 5) Anemia Hemoglobin currently 9.7. Plan; B12 ordered, serum ferritin ordered, TIBC ordered, PT with INR ordered, CBC and CMP in a.m. 6) hyperbilirubinemia T bili and AST as above. Plan; liver ultrasound ordered, clear liquid diet ordered, serum lipase ordered. 7) hypoglycemia Currently 67. Likely secondary to #1. Plan; 8) tobacco abuse Advised cessation. Plan; NicoDerm patch initiated. DVT prophylaxis - low risk, not indicated Patient seen by Nicholas Kim PA-C, under the supervision of Dr. Dubose. Documented by User: Dr. Radha Dubose MD 08/31/20 19:49 HPI - General General Date of Admission: 08/31/20 PFSH Medical History ETOH abuse Home Medications ifeissaj-lnnjg-irwag-CF borate 3 ea PO DAILY 12/06/19 [History Last Taken 12/06/19] ibuprofen 600 mg PO PRN PRN 12/06/19 [History Last Taken 11/06/19] omeprazole magnesium 20 mg PO DAILY 12/06/19 [History Last Taken 12/06/19] Allergy/AdvReac Type Severity Reaction Status Date / Time No Known Allergies Allergy Verified 08/31/20 12:28 Surgical History History of appendectomy Social History Smoking Status: Current every day smoker Lab / Micro Data Result Diagrams: 08/31/20 13:30 08/31/20 14:30 Addendum Addendum: Hospitalist note: I am seeing this patient in conjunction with Nicholas Kim. I independently seen and examined the patient. History and physical, laboratory data and imaging studies reviewed and I concur with the above. Patient presented to the emergency room requesting admission for acute alcohol intoxication with impending withdrawal for medical stabilization. Reportedly, patient was trying to find the main entrance of the hospital, felt dizzy and he fell. He states that he felt dizzy and lightheaded but he did not lose his consciousness. He denied chest pain, shortness of breath, palpitation. He states that he has been drinking since he was 15 years old, drinks 5-6 shots of vodka every day. He was admitted last year for detox but he relapsed after 1 month. At this time, he denied any active withdrawal symptoms. He takes no prescription medications at home. In the emergency department, he was afebrile, tachycardic, blood pressure stable and pulse ox was 99% on room air. Routine blood work was remarkable for hemoglobin of 9.7 g/dL, sodium of 133, blood glucose was 67. LFT revealed bilirubin of 11.2, direct bilirubin of 9.1, AST was 378, alk phos was 177. Urine drug screen was negative. Blood alcohol level was 163. CT scan brain showed no acute findings. CT scan abdomen pelvis with contrast revealed mild sigmoid diverticulitis, markedly enlarged fatty liver, gallstones without acute cholecystitis. Patient is being admitted for acute alcohol intoxication with impending withdrawal for medical stabilization, found to have anemia, hyperbilirubinemia and hypoglycemia. - Physical Exam General: Alert, Oriented x3, Cooperative, No apparent distress. HEENT: Atraumatic, PERRLA, EOMI, deep jaundice of both eyes. Neck: Supple, No JVD, Negative Carotid Bruits, Trachea Midline, Thyroid Normal. Lungs: Clear to auscultation, Normal air movement, No rhonchi, No wheeze, No rales. Cardiovascular: Regular rate, Regular Rhythm, Normal S1, Normal S2, PMI Normal, tachycardia. Abdomen: Bowel Sounds Present, Soft, Non Tender, Non-Distended, No Hepato-splenomegaly. Extremities: No clubbing, No cyanosis, No edema Skin: No rashes, No breakdown Neurological: Cranial nerves are intact, neuro grossly intact Assessment and plan: #1 acute alcohol intoxication/impending withdrawal: Blood alcohol level is 167. Currently, no significant withdrawal symptoms, no DTs. Plan[facility] telemetry monitoring, IV fluids, initiate alcohol withdrawal protocol with tapering phenobarbital, thiamine and folate supplement IV, as needed Bentyl, gabapentin, Vistaril, Imodium, trazodone, consult 180 program. #2 mild acute sigmoid diverticulitis: CT scan abdomen and pelvis reviewed. Plan: Clear liquids, IV fluids, start IV Flagyl and ciprofloxacin, advance diet as tolerated, repeat CBC and CMP tomorrow morning. #3 jaundice/hyperbilirubinemia: CT scan abdomen and pelvis revealed markedly enlarged fatty liver, no intrahepatic masses, distended gallbladder with single gallstone, no inflammatory changes, no biliary duct dilatation or choledocholithiasis. This could be chronic liver disease. Plan: IV fluids, repeat CMP tomorrow morning, check serum lipase, liver ultrasound. #4 hypoglycemia/hypokalemia: Due to alcoholism. Plan to replace potassium with IV potassium chloride, check serum magnesium, fluids with IV D5 normal saline. #5 anemia: It is macrocytic anemia, admission globin is 9.7 g/dL. No active bleeding. Plan: Iron studies, TIBC, ferritin, B12, RBC folate, stool for occult blood. #6 hyponatremia: This is chronic because of alcoholism, plan to monitor. This note was generated with [employer] dictation software. It may contain incorrect words, spelling, and punctuation that were not noted in checking the note before signing. Visit Charges Inpatient E&M: 36954 Init Hosp L3
[2020-08-31 19:11] LABS: Lipase 712 U/L (73-393)
[2020-08-31 19:42] LABS: International Normalized Ratio 1.5; Prothrombin Time (Protime)PT. 16.9 SECONDS (11.7-14.9)
[2020-08-31 20:16] LABS: Vitamin B12 610 pg/mL (211-911)
[2020-08-31] MEDS: Dextrose 5%/0.9% NaCl 1,000 ML 125 ML IV (20:21)
[2020-08-31 20:25] LABS: Ferritin 3285 ng/mL (26-388); Iron Binding Capacity,Total 115 ug/dL (250-450); Magnesium 1.1 mg/dL (1.6-2.6)
[2020-08-31] MEDS: Phenobarbital 32.4 MG Tablet PO (20:36)
[2020-08-31] MEDS: Potassium Chloride 10mEq/100mL 10 MEQ/100 ML IV.SOLN. 100 MEQ IV BOLUS ×3 (20:44→23:02)
[2020-08-31] MEDS: traZODone 100 MG Tablet PO (20:47)
[2020-08-31] MEDS: 0.9% Saline Lock 10 ML Syringe IV (21:57)
[2020-08-31] MEDS: metroNIDAZOLE 500 MG/100 ML BAG 100 MG IV (21:57)
[2020-08-31] MEDS: Ciprofloxacin 400 MG/200 ML BAG 200 MG IV (23:34)
[2020-08-31] MEDS: Gabapentin 300 MG Capsule PO (23:36)
[2020-09-01] VITALS (16 sets, daily range): BP systolic 92–127; BP diastolic 57–82; PULSE 88–106; RESP 16–18; TEMP 36.4–37.3; O2SAT 93–98
[2020-09-01] MEDS: Magnesium Sulfate 4gm/100mL 4 GM/100 ML IV.SOLN. IV (00:10)
[2020-09-01] MEDS: Phenobarbital 32.4 MG Tablet PO ×6 (00:40→20:37)
[2020-09-01] MEDS: Ondansetron 8 MG Tablet PO (00:48)
[2020-09-01] MEDS: Dextrose 5%/0.9% NaCl 1,000 ML 125 ML IV (04:12)
[2020-09-01] MEDS: 0.9% Saline Lock 10 ML Syringe IV ×3 (04:12→22:27)
[2020-09-01] MEDS: metroNIDAZOLE 500 MG/100 ML BAG 100 MG IV ×3 (05:29→23:00)
[2020-09-01 07:16] LABS: Absolute Lymphocyte Count 0.77 X10^3/uL (0.83-4.51); Absolute Neutrophil Count 3.1 X10^3/uL (2.0-7.7); Basophil# 0.05 X10^3/uL; Basophil% 1.1 % (0-1); Eosinophil# 0.02 X10^3/uL; Eosinophils% 0.4 % (0-5); Hematocrit 20.8 % (40-54); Hemoglobin 7.1 g/dL (13.0-16.5); Lymphocyte # 0.77 X10^3/ul (0.83-4.51); Lymphocyte % 16.4 % (19-41); Mean Corp Hgb Conc 34.1 g/dL (32-36); Mean Corpuscular Hgb 35.3 pg (27.0-32.0); Mean Corpuscular Volume 103.5 fL (80-94); Mean Platelet Vol. 10.6 fl (6.2-12.0); Monocyte# 0.58 X10^3/uL; Monocyte% 12.4 % (0-10); NRBC Flagged by Analyzer 1.1 % (0-5); Neutrophil # 3.06 X10^3/uL (2.7-7.7); Neutrophil % 65.2 % (47-70); POSITIVE MORPHOLOGY YES; Platelet Count 110 K/mm3 (150-450); RBC Distribution Width SD 67.5 fl (35.1-43.9); Red Blood Count 2.01 M/mm3 (4.6-6.2); White Blood Count 4.7 K/mm3 (4.4-11.0)
[2020-09-01 07:24] LABS: Differential Indicated SCAN CRITERIA MET
[2020-09-01 07:41] LABS: ALB/GLOB Ratio 0.5 RATIO (0.9-2.4); AST(SGOT) 302 U/L (15-37); Alanine Aminotransfer ALT/SGPT 47 U/L (16-61); Albumin, Serum 1.9 g/dL (3.2-5.0); Alkaline Phosphatase 130 U/L (45-117); Anion Gap 9 (5-15); BUN 6 mg/dL (7-18); BUN/Creat Ratio 7.8 RATIO (10-20); Calcium,Total 7.2 mg/dL (8.5-10.1); Chloride 97 mmol/L (98-107); Creatinine, Serum 0.77 mg/dL (0.70-1.30); EST Glomerular Filtration Rate 112 mL/min (>60); Est Glom Filt Rate - Afr Amer 136 mL/min (>60); Estimated Creatinine Clearance 97.78 ml/min; Globulin 3.5 g/dL (2.2-4.2); Glucose 128 mg/dL (74-106); Potassium 2.9 mmol/L (3.5-5.1); Protein, Total 5.4 g/dL (6.4-8.2); Sodium Level 131 mmol/L (136-145)
[2020-09-01 07:58] LABS: Anisocytosis 2+; Differential Comment SCANNED
[2020-09-01 07:59] LABS: Macrocytosis 1+; Red Cell Morphology N CHROM NORMAL (NORM C&C); Stomatocyte 1+
[2020-09-01 08:01] LABS: Magnesium 2.4 mg/dL (1.6-2.6)
[2020-09-01] MEDS: Ciprofloxacin 400 MG/200 ML BAG 200 MG IV ×2 (09:58→21:27)
--- NOTE | 2020-09-01 10:36 | ADDICTION ---
This brief writer met with PT to conduct ASAM, MSE, AUDIT assessments and to plan for d/c. PT A+Ox4 and participated minimally, but appropriately. All assessments completed, faxed to [facility] and placed in PT's chart. PT declined coordination for f/u treatment noting that I'm just going to stay away from people who drink. PT to d/c to home and did not request transportation assistance/corodination.
[2020-09-01] MEDS: Potassium Chloride 10mEq/100mL 10 MEQ/100 ML IV.SOLN. 100 MEQ IV BOLUS ×4 (12:27→18:15)
[2020-09-01 14:08] LABS: Bilirubin, Direct 9.01 mg/dL (0.00-0.30)
[2020-09-01 14:52] LABS: LDH 304 U/L (87-241)
--- NOTE | 2020-09-01 15:10 | PN.HOSP_ITS ---
Documented by User: Nicholas SMITH 09/01/20 16:02 Subjective Subjective Patient is a 54-year-old male comfortably resting in bed, alert and oriented x3. Patient denies any symptoms related to withdrawal to include tremors, loss of consciousness, delusions/hallucinations. Denies chest pain, shortness of b reath, palpitations, fever, chills, N/V/D. Objective Data Objective Data Vital Signs: Vital Signs Temp Pulse Resp BP Pulse Ox 98 F 93 16 92/61 98 09/01/20 11:46 09/01/20 11:47 09/01/20 11:46 09/01/20 11:46 09/01/20 11:46 Oxygen Delivery Method Room Air Weight: 135 lb 12.876 oz Body Mass Index (BMI) 21.9 Intake & Output: Intake and Output for Last 24 Hours 08/30/20 08/31/20 09/01/20 23:59 23:59 23:59 Intake Total 1710.5 / 1710.5 3211.78 / 3211.78 Output Total 100 / 100 100 / 100 Balance 1610.5 / 1610.5 3111.78 / 3111.78 Lab / Micro Data Result Diagrams: 09/02/20 06:17 09/02/20 06:17 Labs: Laboratory Results - last 24 hr 08/31/20 08/31/20 08/31/20 13:30 16:30 16:30 WBC RBC Hgb Hct MCV MCH MCHC RDW Std Deviation RDW Coeff of Adia Plt Count MPV Immature Gran % (Auto) Neut % (Auto) Lymph % (Auto) [place] % (Auto) Eos % (Auto) Baso % (Auto) Absolute Neuts (auto) Absolute Lymphs (auto) Nucleated RBC % Differential Comment RBC Morphology Anisocytosis Macrocytosis Stomatocytes PT 16.9 H INR 1.5 Sodium Potassium Chloride Carbon Dioxide Anion Gap BUN Creatinine Estim Creat Clear Calc Est GFR (MDRD) Af Amer Est GFR (MDRD) Non-Af BUN/Creatinine Ratio Glucose Calcium Magnesium TIBC Ferritin Total Bilirubin Direct Bilirubin Indirect Bilirubin AST ALT Alkaline Phosphatase Lactate Dehydrogenase Total Protein Albumin Globulin Albumin/Globulin Ratio Lipase 712 H Vitamin B12 Urine Opiates Screen Urine Methadone Screen Ur Barbiturates Screen Ur Phencyclidine Scrn Ur Amphetamines Screen U Methamphetamin-MDMA U Benzodiazepines Scrn Urine Cocaine Screen U Cannabinoids Screen Ur Drug Screen Comment Acetone Level SMALL H 08/31/20 08/31/20 08/31/20 16:30 16:30 16:47 WBC RBC Hgb Hct MCV MCH MCHC RDW Std Deviation RDW Coeff of Adia Plt Count MPV Immature Gran % (Auto) Neut % (Auto) Lymph % (Auto) [place] % (Auto) Eos % (Auto) Baso % (Auto) Absolute Neuts (auto) Absolute Lymphs (auto) Nucleated RBC % Differential Comment RBC Morphology Anisocytosis Macrocytosis Stomatocytes PT INR Sodium Potassium Chloride Carbon Dioxide Anion Gap BUN Creatinine Estim Creat Clear Calc Est GFR (MDRD) Af Amer Est GFR (MDRD) Non-Af BUN/Creatinine Ratio Glucose Calcium Magnesium 1.1 L TIBC 115 L Ferritin 3285 H Total Bilirubin Direct Bilirubin Indirect Bilirubin AST ALT Alkaline Phosphatase Lactate Dehydrogenase Total Protein Albumin Globulin Albumin/Globulin Ratio Lipase Vitamin B12 610 Urine Opiates Screen NEGATIVE Urine Methadone Screen NEGATIVE Ur Barbiturates Screen NEGATIVE Ur Phencyclidine Scrn NEGATIVE Ur Amphetamines Screen NEGATIVE U Methamphetamin-MDMA NEGATIVE U Benzodiazepines Scrn NEGATIVE Urine Cocaine Screen NEGATIVE U Cannabinoids Screen NEGATIVE Ur Drug Screen Comment Acetone Level 09/01/20 09/01/20 09/01/20 05:50 05:50 05:50 WBC 4.7 RBC 2.01 L Hgb 7.1 L Hct 20.8 L MCV 103.5 H MCH 35.3 H MCHC 34.1 RDW Std Deviation 67.5 H RDW Coeff of Adia 18.0 H Plt Count 110 L MPV 10.6 Immature Gran % (Auto) 4.500 H Neut % (Auto) 65.2 Lymph % (Auto) 16.4 L [place] % (Auto) 12.4 H Eos % (Auto) 0.4 Baso % (Auto) 1.1 H Absolute Neuts (auto) 3.1 Absolute Lymphs (auto) 0.77 L Nucleated RBC % 1.1 Differential Comment SCANNED RBC Morphology N CHROM Anisocytosis 2+ Macrocytosis 1+ Stomatocytes 1+ PT INR Sodium 131 L Potassium 2.9 L Chloride 97 L Carbon Dioxide 25.0 Anion Gap 9 BUN 6 L Creatinine 0.77 Estim Creat Clear Calc 97.78 Est GFR (MDRD) Af Amer 136 Est GFR (MDRD) Non-Af 112 BUN/Creatinine Ratio 7.8 L Glucose 128 H Calcium 7.2 L Magnesium 2.4 TIBC Ferritin Total Bilirubin 10.40 H Direct Bilirubin Indirect Bilirubin AST 302 H ALT 47 Alkaline Phosphatase 130 H Lactate Dehydrogenase Total Protein 5.4 L Albumin 1.9 L Globulin 3.5 Albumin/Globulin Ratio 0.5 L Lipase Vitamin B12 Urine Opiates Screen Urine Methadone Screen Ur Barbiturates Screen Ur Phencyclidine Scrn Ur Amphetamines Screen U Methamphetamin-MDMA U Benzodiazepines Scrn Urine Cocaine Screen U Cannabinoids Screen Ur Drug Screen Comment Acetone Level 09/01/20 09/01/20 13:27 13:27 WBC RBC Hgb Hct MCV MCH MCHC RDW Std Deviation RDW Coeff of Adia Plt Count MPV Immature Gran % (Auto) Neut % (Auto) Lymph % (Auto) [place] % (Auto) Eos % (Auto) Baso % (Auto) Absolute Neuts (auto) Absolute Lymphs (auto) Nucleated RBC % Differential Comment RBC Morphology Anisocytosis Macrocytosis Stomatocytes PT INR Sodium Potassium Chloride Carbon Dioxide Anion Gap BUN Creatinine Estim Creat Clear Calc Est GFR (MDRD) Af Amer Est GFR (MDRD) Non-Af BUN/Creatinine Ratio Glucose Calcium Magnesium TIBC Ferritin Total Bilirubin 11.30 H Direct Bilirubin 9.01 H Indirect Bilirubin 2.30 H AST ALT Alkaline Phosphatase Lactate Dehydrogenase 304 H Total Protein Albumin Globulin Albumin/Globulin Ratio Lipase Vitamin B12 Urine Opiates Screen Urine Methadone Screen Ur Barbiturates Screen Ur Phencyclidine Scrn Ur Amphetamines Screen U Methamphetamin-MDMA U Benzodiazepines Scrn Urine Cocaine Screen U Cannabinoids Screen Ur Drug Screen Comment Acetone Level Radiography Diagnostic Testing: Radiology Impression Abdomen/Pelvis CT 08/31/20 16:35 IMPRESSION: 1. Mild sigmoid diverticulitis without complication. 2. Markedly enlarged fatty infiltrated liver without mass. 3. Thick-walled nondistended stomach. This will be better evaluated by endoscopy or upper GI if there is clinical suspicion for gastric abnormality. 4. Gallstones without acute cholecystitis. 5. Mildly enlarged prostate. 6. Atherosclerotic changes of the aorta. 7. Degenerative changes of the lumbar spine. Electronically Signed: Turner Roberts DO at 16:57 EDT Tel [phone], Service support , Liver Ultrasound 09/01/20 19:27 IMPRESSION: Hepatomegaly and diffuse fatty infiltration of the liver. Solitary gallstone. Electronically Signed: Abram Kahn MD at 10:09 EDT , Service support , Physical Exam Narrative See subjective. Const alert, oriented x3 and no apparent distress HEENT head/scalp atraumatic, moist oral mucous membranes and oropharynx normal Head and Scalp: normocephalic Eyes PERRL, EOMs intact bilaterally and conjunctivae normal Neck no lymphadenopathy, supple and no JVD Resp normal respiratory effort, no retractions, no use of accessory muscles and clear to auscultation bilaterally Cardio regular rate, regular rhythm, no murmurs and no JVD GI normal to inspection, nondistended, normoactive bowel sounds, soft to palpation, non-tender and non-distended Extremity normal to inspection, full ROM and no clubbing, cyanosis or edema Skin no rashes or lesions noted, no wounds, skin turgor normal and no jaundice Neuro CN's II-XII intact bilaterally Psych affect normal Assessment & Plan Assessment/Plan (1) Acute, mixed level of activity, alcohol withdrawal delirium: (2) Hyperbilirubinemia: (3) Sigmoid diverticulitis: (4) Alcohol intoxication: (5) Cholelithiasis: (6) Hypoglycemia: (7) Anemia: (8) Acute hypokalemia: (9) Hyponatremia: (10) Alcohol dependence: PLAN: See subjective for patient presentation. Suspect that patient's abnormal labs are related to his chronic alcoholism or possible hemodilution. We will continue with supportive treatment at this time and continue to monitor. Considering invasive intervention (MRCP) or transfer to higher level of care if patient condition does not improve. 1) alcohol abuse/medical stabilization/impending withdrawal Ethyl alcohol 163.0 mg/dL on admission. CIWA-Ar score 1. Addiction medicine counselor met with patient who denied follow-up treatment stating I am just going to stay away from people who drink. Plan; phenobarbital taper initiated, Imodium as needed, Zofran as needed, Tylenol as needed, Vistaril as needed, Bentyl as needed, Neurontin as needed, folic acid ordered, thiamine ordered, multivitamin ordered. 2) Hypokalemia Currently 2.9. Likely secondary to chronic alcoholism. Magnesium 2.4. Plan; potassium infusion ordered,trend BMP. 3) Hyponatremia Currently 131. Likely secondary to chronic alcoholism. Plan; trend BMP, normal saline infusion initiated 1000 mL at 100 mL's per hour every 10 hours. 4) Diverticulitis Sigmoid diverticulitis evident on CT of the abdomen/pelvis as above. No white count, patient denies fever, chills, N/V/D. Plan; Flagyl and ciprofloxacin ordered. 5) Anemia Hemoglobin currently 7.1. TIBC 115, ferritin 3285, B12 610, RBC folate pending. Plan; type and screen with crossmatch ordered, transfuse if hemoglobin continues to trend downwards below 7. 6) hyperbilirubinemia/Jaundice CT scan abdomen and pelvis revealed markedly enlarged fatty liver, no intrahepatic masses, distended gallbladder with single gallstone, no inflammatory changes, no biliary duct dilatation or choledocholithiasis. Liver ultrasound demonstrates hepatomegaly and diffuse fatty infiltration of liver with solitary gallstone. Gallbladder, common bile duct, pancreas and right kidney are unremarkable. Lipase 712.Plan; continue with gentle hydration. 7) hypoglycemia Currently 128, hypoglycemia on admission likely secondary to #1. Plan; continue to monitor. 8) tobacco abuse Advised cessation. Plan; NicoDerm patch initiated. DVT prophylaxis - low risk, not indicated Patient seen by Nicholas Kim PA-C, under the supervision of Dr. Mckeon. Documented by User: Dr. Brandee Mckeon MD 09/02/20 14:44 Objective Data Lab / Micro Data Result Diagrams: 09/02/20 06:17 09/02/20 06:17 Addendum Addendum: This patient was seen in conjunction with SARAH Ventura. I have independently interviewed and examined the patient and reviewed pertinent historical, laboratory, and other data. Please refer to SARAH Ventura's note for his patient's presentation, findings, and recommendations. I have reviewed and his note and concur with his documentation Patient was seen and examined. Appears ill. No new complaints. Physical Exam: Gen: Appears very unwell, looks in some discomfort, not pale, very jaundiced CVS:HS I +II, regular, no murmurs RESP: Diminished at lung bases GI: BS present and normal, soft, nontender, no palpable organs EXT:No edema ASSESSMENT: 1. Acute alcohol withdrawal 2. Severe hypokalemia/hypomagnesemia 3. Hyponatremia 4. Acute diverticulitis 5. Severe anemia 6. Elevated liver enzymes 7. Hypo glycemia 8. Nicotine dependence Plan: Continue to replace electrolytes Symptomatic care Continue phenobarbital withdrawal protocol Visit Charges Inpatient E&M: 29166 Subs Hosp L3
[2020-09-01] MEDS: 0.9% Normal Saline 1,000 ML 100 ML IV (15:11)
--- NOTE | 2020-09-01 19:27 | US_ITS ---
STUDY: ABDOMINAL ULTRASOUND - RIGHT UPPER QUADRANT REASON FOR VISIT: Male, 54 years old Jaundice, hyperbilirubinemia. Ultrasound of liver TECHNIQUE: Ultrasound evaluation of the right upper quadrant was performed with real-time and static williamson-scale imaging. TECHNICAL QUALITY: Adequate. COMPARISON: Comparison is made with prior CT scan of the abdomen and pelvis dated 08/31/2020. FINDINGS: Liver: The liver is enlarged and measures 24.9 cm. There is increased echogenicity consistent with fatty infiltration. The bile ducts are within normal limits. There is hepatic color flow. The direction of portal flow is hepatopetal. There is no demonstrated mass lesion. Gallbladder: Normal distended gallbladder. The gallbladder wall measures 2.9 mm. There is a negative sonographic Singh''s sign. There is no pericholecystic fluid. There is a solitary echogenic gallstone within the gallbladder. And measures 7 mm. Common Bile Duct (C.B.D.): The common bile duct measures mm. Pancreas: Normal size of the head, body and tail of the pancreas. There is no demonstrated pancreatic mass or cyst. Right Kidney: Normal size of the right kidney. The right kidney measures 10.6 cm x 5.7 cm x 5 cm. Normal renal cortex. The right cortex measures 1.8 cm. There is no demonstrated renal mass or cyst. There is no right hydronephrosis. US/Liver IMPRESSION: Hepatomegaly and diffuse fatty infiltration of the liver. Solitary gallstone. Electronically Signed: Abram Kahn MD at 10:09 EDT , Service support ,
[2020-09-01] MEDS: traZODone 100 MG Tablet PO (22:20)
[2020-09-02] VITALS (11 sets, daily range): BP systolic 98–129; BP diastolic 72–86; PULSE 83–96; RESP 16–18; TEMP 36.7–37.2; O2SAT 94–100
[2020-09-02] MEDS: 0.9% Normal Saline 1,000 ML 100 ML IV ×3 (00:33→20:46)
[2020-09-02] MEDS: Phenobarbital 32.4 MG Tablet PO ×6 (00:34→20:52)
[2020-09-02] MEDS: Gabapentin 300 MG Capsule PO ×2 (00:38→17:31)
[2020-09-02] MEDS: metroNIDAZOLE 500 MG/100 ML BAG 100 MG IV ×3 (05:05→21:10)
[2020-09-02 06:46] LABS: Absolute Neutrophil Count 3.3 X10^3/uL (2.0-7.7); Basophil# 0.03 X10^3/uL; Basophil% 0.6 % (0-1); Eosinophil# 0.07 X10^3/uL; Eosinophils% 1.4 % (0-5); Hematocrit 24.5 % (40-54); Hemoglobin 8.3 g/dL (13.0-16.5); Lymphocyte % 17.6 % (19-41); Mean Corp Hgb Conc 33.9 g/dL (32-36); Mean Corpuscular Hgb 35.2 pg (27.0-32.0); Mean Corpuscular Volume 103.8 fL (80-94); Mean Platelet Vol. 10.5 fl (6.2-12.0); Monocyte# 0.54 X10^3/uL; Monocyte% 10.6 % (0-10); NRBC Flagged by Analyzer 1.4 % (0-5); Neutrophil # 3.34 X10^3/uL (2.7-7.7); Neutrophil % 65.5 % (47-70); POSITIVE MORPHOLOGY YES; Platelet Count 118 K/mm3 (150-450); RBC Distribution Width CV 19.3 % (11.6-14.6); RBC Distribution Width SD 72.2 fl (35.1-43.9); Red Blood Count 2.36 M/mm3 (4.6-6.2); White Blood Count 5.1 K/mm3 (4.4-11.0)
[2020-09-02 06:49] LABS: Differential Indicated SCAN CRITERIA MET
[2020-09-02 07:11] LABS: Anion Gap 8 (5-15); BUN 3 mg/dL (7-18); BUN/Creat Ratio 4.5 RATIO (10-20); Calcium,Total 7.6 mg/dL (8.5-10.1); Chloride 99 mmol/L (98-107); Creatinine, Serum 0.66 mg/dL (0.70-1.30); EST Glomerular Filtration Rate 134 mL/min (>60); Est Glom Filt Rate - Afr Amer 162 mL/min (>60); Estimated Creatinine Clearance 114.07 ml/min; Glucose 108 mg/dL (74-106); Potassium 3.3 mmol/L (3.5-5.1); Sodium Level 133 mmol/L (136-145)
[2020-09-02 07:12] LABS: Anisocytosis 2+
[2020-09-02 08:22] LABS: AST(SGOT) 252 U/L (15-37); Alanine Aminotransfer ALT/SGPT 41 U/L (16-61); Alkaline Phosphatase 129 U/L (45-117); Bilirubin, Direct 9.59 mg/dL (0.00-0.30); Globulin 3.5 g/dL (2.2-4.2); Magnesium 1.5 mg/dL (1.6-2.6); Protein, Total 5.5 g/dL (6.4-8.2)
[2020-09-02] MEDS: Potassium Chloride Oral Tablet 20 MEQ 60 MEQ PO (09:05)
[2020-09-02] MEDS: 0.9% Saline Lock 10 ML Syringe IV (09:06)
[2020-09-02] MEDS: Ciprofloxacin 400 MG/200 ML BAG 200 MG IV ×2 (10:51→21:10)
--- NOTE | 2020-09-02 12:15 | PN.HOSP_ITS ---
Documented by User: Nicholas SMITH 09/02/20 12:29 Subjective Subjective Patient is a 54-year-old male comfortably resting in bed eating, alert and oriented x3. Patient denies any progression of symptoms from admission to include tremors, loss of consciousness, seizures or hallucinations. Patient did appear acutely uncoordinated while eating breakfast and drinking broth, and spilled some of these contents on himself. Patient did not appear to be aware of his lack of coordination. Denies chest pain, shortness of breath, palpitations, fever, chills, N/V/D. Objective Data Objective Data Vital Signs: Vital Signs Temp Pulse Resp BP Pulse Ox 98.0 F 91 16 101/75 95 09/02/20 08:10 09/02/20 08:10 09/02/20 08:10 09/02/20 08:10 09/02/20 08:10 Oxygen Delivery Method Room Air Weight: 135 lb 12.876 oz Body Mass Index (BMI) 21.9 Intake & Output: Intake and Output for Last 24 Hours 08/31/20 09/01/20 09/02/20 23:59 23:59 23:59 Intake Total 1710.5 / 1710.5 4161.78 / 4511.78 2848.87 / 2848.87 Output Total 100 / 100 100 / 100 Balance 1610.5 / 1610.5 4061.78 / 4411.78 2848.87 / 2848.87 Lab / Micro Data Result Diagrams: 09/02/20 06:17 09/02/20 06:17 Labs: Laboratory Results - last 24 hr 09/01/20 09/01/20 09/01/20 13:27 13:27 16:40 WBC RBC Hgb Hct MCV MCH MCHC RDW Std Deviation RDW Coeff of Adia Plt Count MPV Immature Gran % (Auto) Neut % (Auto) Lymph % (Auto) [place] % (Auto) Eos % (Auto) Baso % (Auto) Absolute Neuts (auto) Absolute Lymphs (auto) Nucleated RBC % Anisocytosis Sodium Potassium Chloride Carbon Dioxide Anion Gap BUN Creatinine Estim Creat Clear Calc Est GFR (MDRD) Af Amer Est GFR (MDRD) Non-Af BUN/Creatinine Ratio Glucose Calcium Magnesium Total Bilirubin 11.30 H Direct Bilirubin 9.01 H Indirect Bilirubin 2.30 H AST ALT Alkaline Phosphatase Lactate Dehydrogenase 304 H Total Protein Albumin Globulin Blood Type O NEGATIVE Antibody Screen NEGATIVE Crossmatch See Detail 09/02/20 09/02/20 09/02/20 06:17 06:17 06:17 WBC 5.1 RBC 2.36 L Hgb 8.3 L Hct 24.5 L MCV 103.8 H MCH 35.2 H MCHC 33.9 RDW Std Deviation 72.2 H RDW Coeff of Adia 19.3 H Plt Count 118 L MPV 10.5 Immature Gran % (Auto) 4.300 H Neut % (Auto) 65.5 Lymph % (Auto) 17.6 L [place] % (Auto) 10.6 H Eos % (Auto) 1.4 Baso % (Auto) 0.6 Absolute Neuts (auto) 3.3 Absolute Lymphs (auto) 0.90 Nucleated RBC % 1.4 Anisocytosis 2+ Sodium 133 L Potassium 3.3 L Chloride 99 Carbon Dioxide 26.0 Anion Gap 8 BUN 3 L Creatinine 0.66 L Estim Creat Clear Calc 114.07 Est GFR (MDRD) Af Amer 162 Est GFR (MDRD) Non-Af 134 BUN/Creatinine Ratio 4.5 L Glucose 108 H Calcium 7.6 L Magnesium 1.5 L Total Bilirubin 12.10 H Direct Bilirubin 9.59 H Indirect Bilirubin AST 252 H ALT 41 Alkaline Phosphatase 129 H Lactate Dehydrogenase Total Protein 5.5 L Albumin 2.0 L Globulin 3.5 Blood Type Antibody Screen Crossmatch Physical Exam Narrative See subjective. Const alert, oriented x3 and no apparent distress HEENT head/scalp atraumatic and moist oral mucous membranes Head and Scalp: normocephalic Eyes PERRL and EOMs intact bilaterally Neck no lymphadenopathy, supple and no JVD Resp normal respiratory effort, no retractions, no use of accessory muscles and clear to auscultation bilaterally Cardio regular rate, regular rhythm, no murmurs and no JVD GI normal to inspection, nondistended, normoactive bowel sounds, soft to palpation, non-tender and non-distended Extremity normal to inspection, full ROM and no clubbing, cyanosis or edema Extremity Narrative: Patient demonstrated lack of coordination in the upper extremities and did spill his broth and jell-o on himself while attempt to eat/drink. Skin no rashes or lesions noted, no wounds, skin turgor normal and no petechiae Neuro CN's II-XII intact bilaterally Psych affect normal Assessment & Plan Assessment/Plan (1) Acute, mixed level of activity, alcohol withdrawal delirium: (2) Hyperbilirubinemia: (3) Sigmoid diverticulitis: (4) Cholelithiasis: (5) Alcohol dependence: (6) Hypoglycemia: (7) Anemia: (8) Acute hypokalemia: (9) Alcohol intoxication: (10) Hyponatremia: PLAN: See subjective for patient presentation. Patient did demonstrate lacrimation in the upper extremities while eating and drinking breakfast. Patient did spill his broth and Jell-O on himself while attempting to eat/drink. Believe this is related to his phenobarbital taper. Patient was alert and or iented and demonstrated no focal neuro deficits on my exam or review of systems. Labs respect to her T bili and liver functions tests are improving with supportive management. We will continue to monitor. Considering invasive intervention (MRCP) or transfer to higher level of care if patient condition does not improve. 1) Alcohol abuse/medical stabilization/impending withdrawal Ethyl alcohol 163.0 mg/dL on admission. CIWA-Ar score 1. Addiction medicine counselor met with patient who denied follow-up treatment stating I am just going to stay away from people who drink. Patient does demonstrate tremors/lack of [place] as above. Believe this is related to his phenobarbital taper as above. Plan; phenobarbital taper initiated, Imodium as needed, Zofran as needed, Tylenol as needed, Vistaril as needed, Bentyl as needed, Neurontin as needed, folic acid ordered, thiamine ordered, multivitamin ordered. 2) Hypokalemia Currently 3.3. Likely secondary to chronic alcoholism. Plan; K-Dur 40 mg p.o. daily ordered. 3) Hyponatremia Currently 133. Likely secondary to chronic alcoholism. Plan; trend BMP, normal saline infusion initiated 1000 mL at 100 mL's per hour every 10 hours. 4) Diverticulitis Sigmoid diverticulitis evident on CT of the abdomen/pelvis as above. No white count, patient denies fever, chills, N/V/D. Plan; Flagyl and ciprofloxacin ordered. 5) Anemia Hemoglobin currently 7.1. TIBC 115, ferritin 3285, B12 610, RBC folate pending. Plan; type and screen with crossmatch ordered, transfuse if hemoglobin continues to trend downwards below 7. 6) hyperbilirubinemia/Jaundice CT scan abdomen and pelvis revealed markedly enlarged fatty liver, no intrahepatic masses, distended gallbladder with single gallstone, no inflammatory changes, no biliary duct dilatation or choledocholithiasis. Liver ultrasound demonstrates hepatomegaly and diffuse fatty infiltration of liver with solitary gallstone. Gallbladder, common bile duct, pancreas and right kidney are unremarkable. Lipase 712.Plan; continue with gentle hydration. 7) hypoglycemia Currently 128, hypoglycemia on admission likely secondary to #1. Plan; continue to monitor. 8) tobacco abuse Advised cessation. Plan; NicoDerm patch initiated. 9) Hypomagnesemia 1.5 Plan; magnesium sulfate infusion initiated. DVT prophylaxis - low risk, not indicated Patient seen by Nicholas Kim PA-C, under the supervision of Dr. Mckeon. Documented by User: Dr. Brandee Mckeon MD 09/02/20 14:43 Objective Data Lab / Micro Data Result Diagrams: 09/02/20 06:17 09/02/20 06:17 Addendum Addendum: This patient was seen in conjunction with SARAH Ventura. I have independently interviewed and examined the patient and reviewed pertinent historical, laboratory, and other data. Please refer to SARAH Ventura's note for his patient's presentation, findings, and recommendations. I have reviewed and his note and concur with his documentation Patient was seen and examined. Appears ill. No new complaints. Having tremors. Physical Exam: Gen: Appears very unwell, looks in some discomfort, not pale, very jaundiced CVS:HS I +II, regular, no murmurs RESP: Diminished at lung bases GI: BS present and normal, soft, nontender, no palpable organs EXT:No edema ASSESSMENT: 1. Acute alcohol withdrawal 2. Severe hypokalemia/hypomagnesemia 3. Hyponatremia 4. Acute diverticulitis 5. Severe anemia 6. Elevated liver enzymes 7. Hypo glycemia 8. Nicotine dependence Plan: Continue to replace electrolytes Symptomatic care Continue phenobarbital withdrawal protocol Visit Charges Inpatient E&M: 70106 Subs Hosp L3
[2020-09-02] MEDS: Magnesium Sulfate 4gm/100mL 4 GM/100 ML IV.SOLN. IV (12:17)
[2020-09-03] VITALS (12 sets, daily range): BP systolic 106–128; BP diastolic 72–91; PULSE 87–109; RESP 16–18; TEMP 36.5–37; O2SAT 96–100
[2020-09-03] MEDS: Phenobarbital 32.4 MG Tablet PO ×5 (00:26→21:59)
[2020-09-03] MEDS: metroNIDAZOLE 500 MG/100 ML BAG 100 MG IV (05:05)
[2020-09-03 06:02] LABS: Absolute Lymphocyte Count 0.83 X10^3/uL (0.83-4.51); Absolute Neutrophil Count 3.5 X10^3/uL (2.0-7.7); Basophil# 0.06 X10^3/uL; Basophil% 1.1 % (0-1); Eosinophil# 0.14 X10^3/uL; Eosinophils% 2.6 % (0-5); Hemoglobin 8.5 g/dL (13.0-16.5); Lymphocyte # 0.83 X10^3/ul (0.83-4.51); Lymphocyte % 15.3 % (19-41); Mean Corpuscular Hgb 35.6 pg (27.0-32.0); Mean Corpuscular Volume 104.6 fL (80-94); Mean Platelet Vol. 10.4 fl (6.2-12.0); Monocyte# 0.64 X10^3/uL; Monocyte% 11.8 % (0-10); NRBC Flagged by Analyzer 0.9 % (0-5); Neutrophil # 3.51 X10^3/uL (2.7-7.7); Neutrophil % 64.8 % (47-70); POSITIVE MORPHOLOGY YES; Platelet Count 133 K/mm3 (150-450); RBC Distribution Width CV 19.7 % (11.6-14.6); RBC Distribution Width SD 74.2 fl (35.1-43.9); Red Blood Count 2.39 M/mm3 (4.6-6.2); White Blood Count 5.4 K/mm3 (4.4-11.0)
[2020-09-03 06:10] LABS: Differential Indicated SCAN CRITERIA MET
[2020-09-03 06:28] LABS: Hypochromasia RARE; Microcytosis RARE; Polychromasia RARE; Target Cells RARE
[2020-09-03 06:32] LABS: ALB/GLOB Ratio 0.6 RATIO (0.9-2.4); AST(SGOT) 189 U/L (15-37); Alanine Aminotransfer ALT/SGPT 35 U/L (16-61); Albumin, Serum 1.9 g/dL (3.2-5.0); Alkaline Phosphatase 132 U/L (45-117); Anion Gap 7 (5-15); BUN 2 mg/dL (7-18); BUN/Creat Ratio 3.9 RATIO (10-20); Calcium,Total 7.6 mg/dL (8.5-10.1); Chloride 102 mmol/L (98-107); Creatinine, Serum 0.51 mg/dL (0.70-1.30); EST Glomerular Filtration Rate 182 mL/min (>60); Est Glom Filt Rate - Afr Amer 220 mL/min (>60); Estimated Creatinine Clearance 147.63 ml/min; Globulin 3.4 g/dL (2.2-4.2); Glucose 91 mg/dL (74-106); Magnesium 1.8 mg/dL (1.6-2.6); Potassium 3.3 mmol/L (3.5-5.1); Protein, Total 5.3 g/dL (6.4-8.2); Sodium Level 133 mmol/L (136-145)
[2020-09-03] MEDS: Potassium Chloride Oral Tablet 20 MEQ 40 MEQ PO ×2 (08:51→08:52)
[2020-09-03] MEDS: Pantoprazole Sodium 40 MG Tablet PO ×2 (08:52→21:59)
[2020-09-03] MEDS: Thiamine Hydrochloride 100 MG Tablet PO (08:52)
[2020-09-03] MEDS: Ciprofloxacin 500 MG Tablet PO ×2 (10:34→21:58)
--- NOTE | 2020-09-03 10:57 | PN.HOSP_ITS ---
Documented by User: Nicholas SMITH 09/03/20 11:12 Subjective Subjective Patient is a 54-year-old male comfortably resting in bed, alert and oriented x3. Patient reports slight improvement in lack of coronation from yesterday. Patient now complains of just being acutely weekend, especially in the lower ex tremities. No focal neuro deficits observed. Denies chest pain, shortness of breath, fever, chills, N/V/D. Objective Data Objective Data Vital Signs: Vital Signs Temp Pulse Resp BP Pulse Ox 98.1 F 94 16 118/91 H 97 09/03/20 08:40 09/03/20 08:40 09/03/20 08:40 09/03/20 08:40 09/03/20 08:40 Oxygen Delivery Method Room Air Weight: 135 lb 12.876 oz Body Mass Index (BMI) 21.9 Intake & Output: Intake and Output for Last 24 Hours 09/01/20 09/02/20 09/03/20 23:59 23:59 23:59 Intake Total 4161.78 / 4511.78 5615.37 / 5615.37 1068.00 / 1068.00 Output Total 100 / 100 Balance 4061.78 / 4411.78 5615.37 / 5615.37 1068.00 / 1068.00 Lab / Micro Data Result Diagrams: 09/03/20 05:37 09/03/20 05:37 Labs: Laboratory Results - last 24 hr 09/03/20 09/03/20 05:37 05:37 WBC 5.4 RBC 2.39 L Hgb 8.5 L Hct 25.0 L MCV 104.6 H MCH 35.6 H MCHC 34.0 RDW Std Deviation 74.2 H RDW Coeff of Adia 19.7 H Plt Count 133 L MPV 10.4 Immature Gran % (Auto) 4.400 H Neut % (Auto) 64.8 Lymph % (Auto) 15.3 L [place] % (Auto) 11.8 H Eos % (Auto) 2.6 Baso % (Auto) 1.1 H Absolute Neuts (auto) 3.5 Absolute Lymphs (auto) 0.83 Nucleated RBC % 0.9 Polychromasia RARE Hypochromasia RARE Microcytosis RARE Target Cells RARE Sodium 133 L Potassium 3.3 L Chloride 102 Carbon Dioxide 24.0 Anion Gap 7 BUN 2 L Creatinine 0.51 L Estim Creat Clear Calc 147.63 Est GFR (MDRD) Af Amer 220 Est GFR (MDRD) Non-Af 182 BUN/Creatinine Ratio 3.9 L Glucose 91 Calcium 7.6 L Magnesium 1.8 Total Bilirubin 12.50 H AST 189 H ALT 35 Alkaline Phosphatase 132 H Total Protein 5.3 L Albumin 1.9 L Globulin 3.4 Albumin/Globulin Ratio 0.6 L Micro: Microbiology 09/03/20 05:15 Stool Stool Occult Blood (DOMINIQUE) - Final Physical Exam Narrative See subjective. Const alert, oriented x3 and no apparent distress HEENT head/scalp atraumatic and moist oral mucous membranes Head and Scalp: normocephalic Eyes PERRL, EOMs intact bilaterally and conjunctivae normal Neck no lymphadenopathy, supple and no JVD Resp normal respiratory effort, no retractions, no use of accessory muscles and clear to auscultation bilaterally Cardio regular rate, regular rhythm, no murmurs and no JVD GI normal to inspection, nondistended, normoactive bowel sounds, soft to palpation, non-tender and non-distended Extremity Right Lower Extremity: lower leg neurovascular exam (4+ strength about the right lower extremity. ) and other Skin no rashes or lesions noted, no wounds, skin turgor normal and no jaundice Neuro CN's II-XII intact bilaterally Psych affect normal Assessment & Plan Assessment/Plan (1) Acute, mixed level of activity, alcohol withdrawal delirium: (2) Hyperbilirubinemia: (3) Sigmoid diverticulitis: (4) Cholelithiasis: (5) Alcohol dependence: (6) Hypoglycemia: (7) Anemia: (8) Acute hypokalemia: (9) Alcohol intoxication: (10) Hyponatremia: (11) Debility: PLAN: See subjective for patient presentation. Patient does report imp roved coordination from yesterday, also feels less tremulous. Patient now complains of right lower extremity weakness. My physical exam revealed 4+ strength in the RLE, 5+ strength in the LLE. Believe this lack of strength is secondary to his clear liquid diet, will advance to regular diet today. In regards to disposition, patient feels like he needs to go to SNF for therapy. A review of PT/OT evaluation reveals that they also agree that he would benefit from SNF placement. Case management consult ordered. 1) Alcohol abuse/medical stabilization/impending withdrawal Ethyl alcohol 163.0 mg/dL on admission. CIWA-Ar score 1. Addiction medicine counselor met with patient who denied follow-up treatment stating I am just going to stay away from people who drink. Patient does demonstrate tremors/lack of [place] as above. Believe this is related to his phenobarbital taper as above. Plan; phenobarbital taper initiated, Imodium as needed, Zofran as needed, Tylenol as needed, Vistaril as needed, Bentyl as needed, Neurontin as needed, folic acid ordered, thiamine ordered, multivitamin ordered. 2) Hypokalemia Currently 3.3. Likely secondary to chronic alcoholism. Plan; K-Dur 40 mg p.o. daily ordered. 3) Hyponatremia Currently 133. Likely secondary to chronic alcoholism. Plan; trend BMP. 4) Diverticulitis Sigmoid diverticulitis evident on CT of the abdomen/pelvis as above. No white count, patient denies fever, chills, N/V/D. Plan; Flagyl and ciprofloxacin ordered. 5) Anemia Hemoglobin currently 8.5, stable. TIBC 115, ferritin 3285, B12 610, RBC folate pending. Plan; type and screen with crossmatch ordered, transfuse if hemoglobin continues to trend downwards below 7. 6) hyperbilirubinemia/Jaundice CT scan abdomen and pelvis revealed markedly enlarged fatty liver, no intrahepatic masses, distended gallbladder with single gallstone, no inflammatory changes, no biliary duct dilatation or choledocholithiasis. Liver ultrasound demonstrates hepatomegaly and diffuse fatty infiltration of liver with solitary gallstone. Gallbladder, common bile duct, pancreas and right kidney are unremarkable. Lipase 712.Plan; continue with gentle hydration, needs GI follow-up on discharge. 7) hypoglycemia Currently 128, hypoglycemia on admission likely secondary to #1. Plan; continue to monitor. 8) tobacco abuse Advised cessation. Plan; NicoDerm patch initiated. 9) Hypomagnesemia 1.5. Plan; magnesium sulfate infusion initiated. 10) Debility Unilateral strength deficits as above. Recommended for SNF placement per PT/OT eval. Plan; case management consult ordered for disposition to SNF, diet advanced to regular. DVT prophylaxis - low risk, not indicated Patient seen by Nicholas Kim PA-C, under the supervision of Dr. Mckeon. Documented by User: Dr. Brandee Mckeon MD 09/03/20 12:01 Objective Data Lab / Micro Data Result Diagrams: 09/03/20 05:37 09/03/20 05:37 Addendum Addendum: This patient was seen in conjunction with SARAH Ventura. I have independently interviewed and examined the patient and reviewed pertinent historical, laboratory, and other data. Please refer to SARAH Ventura's note for his patient's presentation, findings, and recommendations. I have reviewed and his note and concur with his documentation Patient was seen and examined. He appears more alert and oriented today. He is also less tremulous. No other acute events overnight. Physical Exam: Gen: Still appears very unwell, looks in some discomfort, not pale, very ja undiced, alert oriented x3 CVS:HS I +II, regular, no murmurs RESP: Diminished at lung bases GI: BS present and normal, soft, nontender, no palpable organs EXT:No edema ASSESSMENT: 1. Acute alcohol withdrawal 2. Severe hypokalemia/hypomagnesemia 3. Hyponatremia 4. Acute diverticulitis 5. Severe anemia 6. Elevated liver enzymes likely related to chronic alcohol use 7. Hypo glycemia 8. Nicotine dependence 9. Debility, recent fall Plan: Replace potassium and magnesium Continue on a regular diet Continue phenobarbital withdrawal protocol Patient will need urgent GI referral in the outpatient at discharge Will check hepatitis panel, acetaminophen, salicylate level Social work and case management consult for discharge planning to [facility]pc facility Visit Charges Inpatient E&M: 89445 Subs Hosp L2
[2020-09-03 13:29] LABS: Haptoglobin 52 mg/dL (29-370)
[2020-09-03 13:32] LABS: Phosphorus < 0.1 mg/dL (2.5-4.9)
[2020-09-03 14:05] LABS: Acetaminophen (Tylenol) Level < 2.0 ug/mL (10.0-30.0)
[2020-09-03] MEDS: Na Biphos/Potassium Phosphate PACKET 1 PACKET PO ×3 (14:42→21:58)
[2020-09-03] MEDS: metroNIDAZOLE 500 MG Tablet PO ×2 (14:42→21:58)
[2020-09-03] MEDS: Gabapentin 300 MG Capsule PO (17:30)
[2020-09-04] VITALS (13 sets, daily range): BP systolic 111–126; BP diastolic 84–91; PULSE 93–113; RESP 16–18; TEMP 36.4–37; O2SAT 95–100
[2020-09-04] MEDS: Phenobarbital 32.4 MG Tablet PO ×4 (05:03→22:44)
[2020-09-04] MEDS: metroNIDAZOLE 500 MG Tablet PO ×3 (05:03→22:44)
[2020-09-04 05:26] LABS: Absolute Lymphocyte Count 0.77 X10^3/uL (0.83-4.51); Absolute Neutrophil Count 4.5 X10^3/uL (2.0-7.7); Basophil# 0.05 X10^3/uL; Basophil% 0.7 % (0-1); Eosinophil# 0.07 X10^3/uL; Hemoglobin 8.6 g/dL (13.0-16.5); Lymphocyte # 0.77 X10^3/ul (0.83-4.51); Lymphocyte % 11.4 % (19-41); Mean Corp Hgb Conc 31.9 g/dL (32-36); Mean Corpuscular Hgb 33.7 pg (27.0-32.0); Mean Corpuscular Volume 105.9 fL (80-94); Mean Platelet Vol. 10.3 fl (6.2-12.0); Monocyte# 1.02 X10^3/uL; Monocyte% 15.1 % (0-10); NRBC Flagged by Analyzer 1.3 % (0-5); Neutrophil # 4.53 X10^3/uL (2.7-7.7); Neutrophil % 67.3 % (47-70); POSITIVE MORPHOLOGY YES; Platelet Count 151 K/mm3 (150-450); RBC Distribution Width CV 20.7 % (11.6-14.6); RBC Distribution Width SD 79.3 fl (35.1-43.9); Red Blood Count 2.55 M/mm3 (4.6-6.2); White Blood Count 6.7 K/mm3 (4.4-11.0)
[2020-09-04 05:28] LABS: Differential Indicated SCAN CRITERIA MET
[2020-09-04 06:10] LABS: ALB/GLOB Ratio 0.5 RATIO (0.9-2.4); AST(SGOT) 157 U/L (15-37); Alanine Aminotransfer ALT/SGPT 34 U/L (16-61); Albumin, Serum 1.9 g/dL (3.2-5.0); Alkaline Phosphatase 164 U/L (45-117); Anion Gap 8 (5-15); BUN 3 mg/dL (7-18); BUN/Creat Ratio 4.7 RATIO (10-20); Calcium,Total 7.6 mg/dL (8.5-10.1); Chloride 103 mmol/L (98-107); Creatinine, Serum 0.64 mg/dL (0.70-1.30); EST Glomerular Filtration Rate 140 mL/min (>60); Est Glom Filt Rate - Afr Amer 169 mL/min (>60); Globulin 3.5 g/dL (2.2-4.2); Glucose 98 mg/dL (74-106); Magnesium 1.5 mg/dL (1.6-2.6); Phosphorus 1.6 mg/dL (2.5-4.9); Potassium 4.7 mmol/L (3.5-5.1); Protein, Total 5.4 g/dL (6.4-8.2); Sodium Level 134 mmol/L (136-145)
[2020-09-04 06:11] LABS: Differential Comment SCANNED
[2020-09-04 06:12] LABS: Anisocytosis 1+; Macrocytosis 1+; Polychromasia RARE; Target Cells RARE
[2020-09-04 06:13] LABS: Hypochromasia RARE
[2020-09-04] MEDS: Potassium Chloride Oral Tablet 20 MEQ 40 MEQ PO (08:08)
[2020-09-04] MEDS: Folic Acid 1 MG Tablet PO (08:09)
[2020-09-04] MEDS: Ciprofloxacin 500 MG Tablet PO ×2 (08:09→22:45)
[2020-09-04] MEDS: Thiamine Hydrochloride 100 MG Tablet PO (08:10)
[2020-09-04] MEDS: Na Biphos/Potassium Phosphate PACKET 1 PACKET PO ×4 (08:10→22:45)
[2020-09-04] MEDS: Pantoprazole Sodium 40 MG Tablet PO ×2 (08:10→22:45)
--- NOTE | 2020-09-04 08:36 | PCM.PN.HOSP ---
Subjective Subjective Patient is a 54-year-old gentleman with history of chronic alcohol dependence admitted with acute alcohol withdrawal. Admitted to regular nursing floor where patient is currently being managed. Objective Data Objective Data Vital Signs: Vital Signs Temp Pulse Resp BP Pulse Ox 98.0 F 101 H 18 123/89 H 99 09/04/20 05:00 09/04/20 05:00 09/04/20 05:00 09/04/20 05:00 09/04/20 05:00 Oxygen Delivery Method Room Air Weight: 61.6 kg Body Mass Index (BMI) 21.9 Intake & Output: Intake and Output for Last 24 Hours 09/02/20 09/03/20 09/04/20 23:59 23:59 23:59 Intake Total 5615.37 / 5615.37 2585.3333 / 2585.3333 Balance 5615.37 / 5615.37 2585.3333 / 2585.3333 Lab / Micro Data Result Diagrams: 09/04/20 04:44 09/04/20 04:44 Micro: Microbiology 09/03/20 05:15 Stool Stool Occult Blood (DOMINIQUE) - Final Physical Exam Narrative GENERAL: cooperative HEENT: Atraumatic; EYES; Icteric, NECK; supple, normal thyroid, RESPIRATORY: Diminished to auscultation CARDIOVASCULAR: Regular S1 S2, GI: soft, normoactive bowel sounds, : No Renal angle tenderness; EXTREMITIES: No edema, no clubbing, MUSCULOSKELETAL: no muscle waisting NEURO: Awake; no lateralizing signs. SKIN: No Rash PSYCH; Flat affect Assessment & Plan Assessment/Plan (1) Acute, mixed level of activity, alcohol withdrawal delirium: (2) Alcohol dependence: PLAN: Patient is a 54-year-old gentleman with history of chronic alcohol dependence admitted with acute alcohol withdrawal. Admitted to regular nursing floor where patient is currently being managed. 1. Acute alcohol withdrawal ?In the patient with chronic alcohol dependence. Patient presented with acute alcohol withdrawal stated above admitted to regular nursing floor where patient is currently being managed with phenobarb taper 2. Acute alcoholic hepatitis with significant hyperbilirubinemia ?Gallbladder ultrasound demonstrated fatty liver. Monitoring liver function test 3. Hypokalemia -Corrected per protocol 4. Hypomagnesemia -Corrected for protocol 5. Anemia - Secondary to chronic disorder monitoring H&H and transfuse if patient becomes symptomatic or hemoglobin falls below 7 7. Mild sigmoid diverticulitis -Based on CT findings patient managed with Cipro and metronidazole 8. Gallstones without evidence of acute cholecystitis ?Patient remains asymptomatic 9. BPH 10. Severe protein calorie malnutrition ?Secondary to chronic alcohol use as well as decreased oral intake patient has been seen in consultation by dietitian 11. Tobacco dependence - Counseled on cessation, offered nicotine patch for tobacco cravings 12. Physical deconditioning - Requested for PT OT eval and social staff worker to assist with discharge planning 13. DVT prophylaxis ?Did encourage early ambulation avoided the use of chemoprophylaxis in view of thrombocytopenia present on admission Visit Charges Inpatient E&M: 28429 Subs Hosp L2
[2020-09-04 10:01] LABS: Folates, RBC Test 1384 ng/mL (>498)
--- NOTE | 2020-09-04 15:35 | CASEMGMT ---
Addendum entered by Leslie Beatty 09/04/20 16:21: SW called the number for [employer]: [phone]. SW was on hold for 20 minutes with nobody answering. SW will try again tomorrow. JESENIA Hager Original Note: SW called the number listed for pt's insurance in the attempt to clarify what type of insurance pt has([phone]). SW redirected to . SW called, this is an automated number. SW called the first number again, after being on hold several minutes was disconnected. SW called our financial dept, message left. SW spoke w/pt in room, confirmed that he does feel he needs to go somewhere for rehab. SW asked pt about his insurance. He states he has [employer] [facility]. SW explained will try to figure it out, will need to see which facilities are in network. Pt then asked about applying for disability. SW explained can get pt information on this, but first we need to figure out his insurance and coverage. Pt states understanding. SW called [facility], pt does not come up in her system. SW went back to speak w/pt again, to try and get additional information in regard to his insurance. Pt states signed up for insurance through the [employer] website, but has not paid for anything yet. Pt is willing to apply for Medicaid if needed, if this insurance does not cover assisted placement. SW explained will continue to try to figure out his insurance. SW explained that Unified 100 Plus series is also mentioned in the financial note, pt states that may be the name of the insurance. He does not know know for certain what his insurance is. SW called the financial dept, and then precert. Eileen in precert was able to give SW another phone number. Pt's insurance is called [employer], it is NOT [employer]. She was able to reach someone at . SW will call this number next to try to find out pt's benefits for SNF. JESENIA Hager
[2020-09-04] MEDS: Loperamide 2 MG Capsule PO (22:58)
[2020-09-04] MEDS: traZODone 100 MG Tablet PO (23:00)
[2020-09-05] VITALS (10 sets, daily range): BP systolic 106–118; BP diastolic 78–92; PULSE 80–115; RESP 16–17; TEMP 36.6–36.8; O2SAT 97–100
[2020-09-05] MEDS: metroNIDAZOLE 500 MG Tablet PO ×3 (05:19→21:06)
[2020-09-05] MEDS: hydrOXYzine PAM 25 MG Capsule 50 MG PO (05:19)
[2020-09-05] MEDS: Loperamide 2 MG Capsule PO ×2 (05:20→21:20)
[2020-09-05 06:42] LABS: Hematocrit 27.6 % (40-54); Hemoglobin 8.8 g/dL (13.0-16.5); Mean Corp Hgb Conc 31.9 g/dL (32-36); Mean Corpuscular Hgb 33.8 pg (27.0-32.0); Mean Corpuscular Volume 106.2 fL (80-94); Mean Platelet Vol. 10.2 fl (6.2-12.0); POSITIVE COUNT YES; POSITIVE MORPHOLOGY YES; Platelet Count 148 K/mm3 (150-450); RBC Distribution Width CV 21.3 % (11.6-14.6); RBC Distribution Width SD 79.9 fl (35.1-43.9); White Blood Count 6.5 K/mm3 (4.4-11.0)
[2020-09-05 06:43] LABS: Differential Indicated MANUAL DIFF
[2020-09-05 07:05] LABS: ALB/GLOB Ratio 0.5 RATIO (0.9-2.4); AST(SGOT) 121 U/L (15-37); Alanine Aminotransfer ALT/SGPT 28 U/L (16-61); Albumin, Serum 1.8 g/dL (3.2-5.0); Alkaline Phosphatase 166 U/L (45-117); Anion Gap 7 (5-15); BUN 2 mg/dL (7-18); BUN/Creat Ratio 3.8 RATIO (10-20); Calcium,Total 7.8 mg/dL (8.5-10.1); Chloride 102 mmol/L (98-107); Creatinine, Serum 0.53 mg/dL (0.70-1.30); EST Glomerular Filtration Rate 172 mL/min (>60); Est Glom Filt Rate - Afr Amer 208 mL/min (>60); Estimated Creatinine Clearance 140.44 ml/min; Globulin 3.4 g/dL (2.2-4.2); Glucose 103 mg/dL (74-106); Magnesium 1.3 mg/dL (1.6-2.6); Potassium 3.8 mmol/L (3.5-5.1); Protein, Total 5.2 g/dL (6.4-8.2); Sodium Level 134 mmol/L (136-145)
[2020-09-05 07:07] LABS: HEPATITIS B SURFACE AG Negative (Negative); Hepatitis A IgM Antibody Negative (Negative); Hepatitis B Core AB IgM Negative (Negative)
[2020-09-05 07:10] LABS: Lymphocyte 28 % (19-41); Metamyelocyte 5 % (0-1); Monocyte 11 % (0-10); Neutrophil-Band 1 % (0-5); Neutrophil-Segmented 55 % (47-70); Total Cells Counted 100 (MANUAL DIFF)
[2020-09-05 07:11] LABS: Absolute Lymphocyte Count 1.82 X10^3/uL (0.83-4.51); Absolute Neutrophil Count 3.6 X10^3/uL (2.0-7.7); Platelet Estimate ADEQUATE (ADEQ)
[2020-09-05 07:12] LABS: Red Cell Morphology NORM C+C NORMAL (NORM C&C)
--- NOTE | 2020-09-05 07:21 | PN.HOSP_ITS ---
Subjective Subjective Patient seen had a relatively uneventful night. Magnesium low at 1.3 patient started on magnesium sulfate IV as well as magnesium chloride p.o. Objective Data Objective Data Vital Signs: Vital Signs Temp Pulse Resp BP Pulse Ox 98.2 F 105 H 17 112/80 97 09/05/20 03:21 09/05/20 03:21 09/05/20 03:21 09/05/20 03:21 09/05/20 03:21 Oxygen Delivery Method Room Air Weight: 61.6 kg Body Mass Index (BMI) 21.9 Intake & Output: Intake and Output for Last 24 Hours 09/03/20 09/04/20 09/05/20 23:59 23:59 23:59 Intake Total 2585.3333 / 2585.3333 700 / 700 810 / 810 Balance 2585.3333 / 2585.3333 700 / 700 810 / 810 Lab / Micro Data Result Diagrams: 09/05/20 06:14 09/05/20 06:14 Labs: Laboratory Results - last 24 hr 09/01/20 09/05/20 09/05/20 05:50 06:14 06:14 WBC 6.5 RBC 2.60 L Hgb 8.8 L Hct 27.6 L MCV 106.2 H MCH 33.8 H MCHC 31.9 L RDW Std Deviation 79.9 H RDW Coeff of Adia 21.3 H Plt Count 148 L MPV 10.2 Neut % (Auto) Not Reportable Absolute Neuts (auto) 3.6 Absolute Lymphs (auto) 1.82 Total Counted 100 Neutrophils % (Manual) 55 Band Neutrophils % 1 Lymphocytes % (Manual) 28 Monocytes % (Manual) 11 H Metamyelocytes % 5 H Diff Path Review May foll Platelet Estimate ADEQUATE RBC Morphology NORM C+C Sodium 134 L Potassium 3.8 Chloride 102 Carbon Dioxide 25.0 Anion Gap 7 BUN 2 L Creatinine 0.53 L Estim Creat Clear Calc 140.44 Est GFR (MDRD) Af Amer 208 Est GFR (MDRD) Non-Af 172 BUN/Creatinine Ratio 3.8 L Glucose 103 Calcium 7.8 L Magnesium 1.3 L Total Bilirubin 11.30 H AST 121 H ALT 28 Alkaline Phosphatase 166 H Total Protein 5.2 L Albumin 1.8 L Globulin 3.4 Albumin/Globulin Ratio 0.5 L RBC Folate Hemolysate 263.0 RBC Folate 1384 Hematocrit 19.0 L Micro: Microbiology 09/03/20 05:15 Stool Stool Occult Blood (DOMINIQUE) - Final Physical Exam Narrative GENERAL: cooperative HEENT: Atraumatic; EYES; Icteric, NECK; supple, normal thyroid, RESPIRATORY: Diminished to auscultation CARDIOVASCULAR: Regular S1 S2, GI: soft, normoactive bowel sounds, : No Renal angle tenderness; EXTREMITIES: No edema, no clubbing, MUSCULOSKELETAL: no muscle waisting NEURO: Awake; no lateralizing signs. SKIN: No Rash PSYCH; Flat affect Assessment & Plan Assessment/Plan (1) Acute, mixed level of activity, alcohol withdrawal delirium: (2) Alcohol dependence: PLAN: Patient is a 54-year-old gentleman with history of chronic alcohol dependence admitted with acute alcohol withdrawal. Admitted to regular nursing floor where patient is currently being managed. 1. Acute alcohol withdrawal ?In the patient with chronic alcohol dependence. Patient presented with acute alcohol withdrawal stated above admitted to regular nursing floor where patient is currently being managed with phenobarb taper -09/05/2020 remains relatively stable 2. Acute alcoholic hepatitis with significant hyperbilirubinemia ?Gallbladder ultrasound demonstrated fatty liver. Monitoring liver function test 3. Hypokalemia -Corrected per protocol 4. Hypomagnesemia -Corrected for protocol -09/05/2020; magnesium down to 1.3 did administer IV magnesium sulfate and p.o. magnesium chloride 5. Anemia - Secondary to chronic disorder monitoring H&H and transfuse if patient becomes symptomatic or hemoglobin falls below 7 7. Mild sigmoid diverticulitis -Based on CT findings patient managed with Cipro and metronidazole 8. Gallstones without evidence of acute cholecystitis ?Patient remains asymptomatic 9. BPH 10. Severe protein calorie malnutrition ?Secondary to chronic alcohol use as well as decreased oral intake patient has been seen in consultation by dietitian 11. Tobacco dependence - Counseled on cessation, offered nicotine patch for tobacco cravings 12. Physical deconditioning - Requested for PT OT eval and social work manager to assist with discharge planning -09/05/2020; insurance preset pending 13. DVT prophylaxis ?Did encourage early ambulation avoided the use of chemoprophylaxis in view of thrombocytopenia present on admission Visit Charges Inpatient E&M: 28271 Subs Hosp L2
[2020-09-05 07:41] LABS: Hep C Antibodies <0.1 s/co ratio (0.0-0.9)
[2020-09-05] MEDS: Thiamine Hydrochloride 100 MG Tablet PO (07:52)
[2020-09-05] MEDS: Folic Acid 1 MG Tablet PO (07:52)
[2020-09-05] MEDS: Ciprofloxacin 500 MG Tablet PO ×2 (07:52→21:06)
[2020-09-05] MEDS: Potassium Chloride Oral Tablet 20 MEQ 40 MEQ PO (07:52)
[2020-09-05] MEDS: Pantoprazole Sodium 40 MG Tablet PO ×2 (07:53→21:06)
[2020-09-05] MEDS: Na Biphos/Potassium Phosphate PACKET 1 PACKET PO ×4 (07:53→21:06)
[2020-09-05] MEDS: 0.9% Saline Lock 10 ML Syringe IV (09:10)
[2020-09-05] MEDS: Magnesium Sulfate 4gm/100mL 4 GM/100 ML IV.SOLN. IV (09:10)
[2020-09-05] MEDS: Magnesium Chloride 64 MG Delay Rel.Tablet 128 MG PO ×2 (09:10→21:06)
[2020-09-05 10:16] LABS: Pathologist Review Reviewed
--- NOTE | 2020-09-05 11:00 | CASEMGMT ---
Social Work Note YASMANI placed a call to Customer Service ( ) and spoke with Jamison. Jamison states pt has no deductible, no copay. Jamison states there are some SNF that accept pt's insurance. Pt's insurance is [employer]. Jamison emailed this worker a list of SNF that accept pt's insurance. SW in to speak with pt. SW introduced self and role at [facility]. Patient was provided a list of SNF providers including quality and resource use data and consistent with the patient?s preferred geographic region, medical needs, and insurance network. Pt states his preference is to stay in [place]. SW informed pt that it appears there are two nursing homes in [place] that accept pt's insurance. Those two facilities are [facility] and [facility]. Pt states no preference, just whichever SNF can accept pt in [place]. SW informed pt that this worker will reach out to SNF facilities to see who can accept pt. Pt states understanding. YASMANI placed a call to [facility] and spoke with Admissions. YASMANI faxed referral to [facility] at [phone]. Plan: SNF pending acceptance and pre-cert Cori Dodd ENGINE MANAGER, FIELD CONTRACTOR
--- NOTE | 2020-09-05 11:17 | CASEMGMT ---
SW gave pt information on applying for disability, and a Medicaid application should he need it at some point. YASMANI explained to pt that YASMANI Cori did send referrals to the nursing homes in [place] in his insurance network, we will let him know once we know about accepting facilities. JESENIA Hager
--- NOTE | 2020-09-05 13:45 | CASEMGMT ---
Addendum entered by Cori Dodd 09/05/20 15:59: SW received call from Allyson at [facility] stating they are able to accept pt and will submit for pre-cert. SW in to speak [facility] pt. SW updated pt that [facility] in [place] is able to accept pt, asked if it was ok to start pre-cert, pt gave permission for pre-cert to be submitted. Pt agreeable to [facility] in [place]. Plan: [facility] pending pre-cert Original Note: Social Work Note SW received message from Yas at [facility] who states they are not able to accept pt. SW reviewed list of SNF, there is only one other SNF in [place] that is listed as taking pt's insurance ([facility]). SW looked up facility, it is listed as [facility] now. SW placed a call to [facility] and left message for admission asking if they accept pt's insurance. SW in to speak with pt. SW informed pt that there is only one other SNF in [place] being listed as taking pt's insurance and this worker has a call out to them to see about the referral. SW asked pt if that one in [place] is not able to accept pt, where would pt like to go next. Pt states to try the SNF in [place]. The SNF in [place] are ([facility] facility, and [facility]). YASMANI went ahead and called [facility] ([facility]) and spoke with Huyen in admissions. Huyen requests referral be faxed to [phone]. YASMANI faxed referral. Plan: SNF pending acceptance and pre-cert Cori Dodd LINE CONSTRUCTION ENGINEER, INTRAVENOUS THERAPY NURSE
[2020-09-05] MEDS: traZODone 100 MG Tablet PO (21:09)
[2020-09-06] VITALS (7 sets, daily range): BP systolic 113–120; BP diastolic 82–86; PULSE 87–99; RESP 16–18; TEMP 36.6–36.8; O2SAT 99–100
[2020-09-06] MEDS: metroNIDAZOLE 500 MG Tablet PO ×2 (04:19→13:01)
[2020-09-06] MEDS: hydrOXYzine PAM 25 MG Capsule 50 MG PO ×2 (04:19→09:23)
[2020-09-06 05:54] LABS: Hematocrit 26.1 % (40-54); Hemoglobin 8.6 g/dL (13.0-16.5); Mean Corpuscular Hgb 34.8 pg (27.0-32.0); Mean Corpuscular Volume 105.7 fL (80-94); Mean Platelet Vol. 10.4 fl (6.2-12.0); POSITIVE COUNT YES; POSITIVE MORPHOLOGY YES; Platelet Count 170 K/mm3 (150-450); RBC Distribution Width CV 21.7 % (11.6-14.6); RBC Distribution Width SD 82.3 fl (35.1-43.9); Red Blood Count 2.47 M/mm3 (4.6-6.2)
[2020-09-06 05:55] LABS: Differential Indicated MANUAL DIFF
[2020-09-06 06:21] LABS: Absolute Neutrophil Count 4.9 X10^3/uL (2.0-7.7); Lymphocyte 20 % (19-41); Metamyelocyte 3 % (0-1); Monocyte 7 % (0-10); Neutrophil-Band 8 % (0-5); Neutrophil-Segmented 62 % (47-70); Platelet Estimate ADEQUATE (ADEQ); Red Cell Morphology N CYTIC NORMAL (NORM C&C); Total Cells Counted 100 (MANUAL DIFF)
[2020-09-06 06:22] LABS: Hypochromasia 1+
[2020-09-06 06:37] LABS: ALB/GLOB Ratio 0.6 RATIO (0.9-2.4); AST(SGOT) 96 U/L (15-37); Alanine Aminotransfer ALT/SGPT 25 U/L (16-61); Albumin, Serum 1.8 g/dL (3.2-5.0); Alkaline Phosphatase 163 U/L (45-117); Anion Gap 7 (5-15); BUN 3 mg/dL (7-18); BUN/Creat Ratio 5.9 RATIO (10-20); Calcium,Total 7.8 mg/dL (8.5-10.1); Chloride 101 mmol/L (98-107); EST Glomerular Filtration Rate 183 mL/min (>60); Est Glom Filt Rate - Afr Amer 221 mL/min (>60); Estimated Creatinine Clearance 148.87 ml/min; Globulin 2.9 g/dL (2.2-4.2); Glucose 87 mg/dL (74-106); Potassium 4.2 mmol/L (3.5-5.1); Protein, Total 4.7 g/dL (6.4-8.2); Sodium Level 132 mmol/L (136-145)
--- NOTE | 2020-09-06 07:56 | PN.HOSP_ITS ---
Subjective Subjective Plan is for patient to be discharged to [facility] Objective Data Objective Data Vital Signs: Vital Signs Temp Pulse Resp BP Pulse Ox 97.8 F 87 16 120/82 H 100 09/06/20 02:20 09/06/20 07:02 09/06/20 02:20 09/06/20 02:20 09/06/20 02:20 Oxygen Delivery Method Room Air Weight: 61.6 kg Body Mass Index (BMI) 21.9 Intake & Output: Intake and Output for Last 24 Hours 09/04/20 09/05/20 09/06/20 23:59 23:59 23:59 Intake Total 700 / 700 1860 / 2160 300 / 300 Output Total 50 / 50 Balance 700 / 700 1810 / 2110 300 / 300 Lab / Micro Data Result Diagrams: 09/06/20 05:20 09/06/20 05:20 Labs: Laboratory Results - last 24 hr 09/05/20 09/06/20 09/06/20 06:14 05:20 05:20 WBC 7.0 RBC 2.47 L Hgb 8.6 L Hct 26.1 L MCV 105.7 H MCH 34.8 H MCHC 33.0 RDW Std Deviation 82.3 H RDW Coeff of Adia 21.7 H Plt Count 170 MPV 10.4 Neut % (Auto) Not Reportable Absolute Neuts (auto) 4.9 Absolute Lymphs (auto) 1.40 Total Counted 100 Neutrophils % (Manual) 62 Band Neutrophils % 8 H Lymphocytes % (Manual) 20 Monocytes % (Manual) 7 Metamyelocytes % 3 H Diff Path Review Reviewed May foll Platelet Estimate ADEQUATE RBC Morphology N CYTIC Hypochromasia 1+ Sodium 132 L Potassium 4.2 Chloride 101 Carbon Dioxide 24.0 Anion Gap 7 BUN 3 L Creatinine 0.50 L Estim Creat Clear Calc 148.87 Est GFR (MDRD) Af Amer 221 Est GFR (MDRD) Non-Af 183 BUN/Creatinine Ratio 5.9 L Glucose 87 Calcium 7.8 L Total Bilirubin 10.50 H AST 96 H ALT 25 Alkaline Phosphatase 163 H Total Protein 4.7 L Albumin 1.8 L Globulin 2.9 Albumin/Globulin Ratio 0.6 L Micro: Microbiology 09/03/20 05:15 Stool Stool Occult Blood (DOMINIQUE) - Final Physical Exam Narrative GENERAL: cooperative HEENT: Atraumatic; EYES; Icteric, NECK; supple, normal thyroid, RESPIRATORY: Diminished to auscultation CARDIOVASCULAR: Regular S1 S2, GI: soft, normoactive bowel sounds, : No Renal angle tenderness; EXTREMITIES: No edema, no clubbing, MUSCULOSKELETAL: no muscle waisting NEURO: Awake; no lateralizing signs. SKIN: No Rash PSYCH; Flat affect Assessment & Plan Assessment/Plan (1) Acute, mixed level of activity, alcohol withdrawal delirium: (2) Alcohol dependence: PLAN: Patient is a 54-year-old gentleman with history of chronic alcohol dependence admitted with acute alcohol withdrawal. Admitted to regular nursing floor where patient is currently being managed. 1. Acute alcohol withdrawal ?In the patient with chronic alcohol dependence. Patient presented with acute alcohol withdrawal stated above admitted to regular nursing floor where patient is currently being managed with phenobarb taper -09/05/2020 remains relatively stable 2. Acute alcoholic hepatitis with significant hyperbilirubinemia ?Gallbladder ultrasound demonstrated fatty liver. Monitoring liver function test 3. Hypokalemia -Corrected per protocol 4. Hypomagnesemia -Corrected for protocol -09/05/2020; magnesium down to 1.3 did administer IV magnesium sulfate and p.o. magnesium chloride 5. Anemia - Secondary to chronic disorder monitoring H&H and transfuse if patient becomes symptomatic or hemoglobin falls below 7 7. Mild sigmoid diverticulitis -Based on CT findings patient managed with Cipro and metronidazole 8. Gallstones without evidence of acute cholecystitis ?Patient remains asymptomatic 9. BPH 10. Severe protein calorie malnutrition ?Secondary to chronic alcohol use as well as decreased oral intake patient has been seen in consultation by dietitian 11. Tobacco dependence - Counseled on cessation, offered nicotine patch for tobacco cravings 12. Physical deconditioning - Requested for PT OT eval and high school social studies tutor to assist with discharge planning -09/05/2020; insurance preset pending 13. DVT prophylaxis ?Did encourage early ambulation avoided the use of chemoprophylaxis in view of thrombocytopenia present on admission Visit Charges Inpatient E&M: 87023 Subs Hosp L2
--- NOTE | 2020-09-06 09:00 | CASEMGMT ---
Social Work Note SW received message from Allyson at [facility] ([phone]) stating pt's insurance doesn't require a pre-cert, pt can admit to [facility] today. YASMANI updated physician. Pt will need COVID test. Charge Nurse updated. Plan: [facility] today Cori Dodd SLOT HOST, CORPORATE TUTOR
[2020-09-06] MEDS: Potassium Chloride Oral Tablet 20 MEQ 40 MEQ PO (09:16)
[2020-09-06] MEDS: Magnesium Chloride 64 MG Delay Rel.Tablet 128 MG PO (09:17)
[2020-09-06] MEDS: Folic Acid 1 MG Tablet PO (09:17)
[2020-09-06] MEDS: Ciprofloxacin 500 MG Tablet PO (09:17)
[2020-09-06] MEDS: Na Biphos/Potassium Phosphate PACKET 1 PACKET PO ×2 (09:17→13:01)
[2020-09-06] MEDS: Thiamine Hydrochloride 100 MG Tablet PO (09:17)
[2020-09-06] MEDS: Pantoprazole Sodium 40 MG Tablet PO (09:18)
--- NOTE | 2020-09-06 09:42 | PCM.TXEXTCAR ---
Diet 09/03/20 11:07 Diet: Regular - General Is pt able to select menu?: Yes Diet Comments: Advance as tolerated. Wound(s) Head: Wound Type: scattered abrasions Left Knee: Wound Type: Abrasion Therapies Physical Therapy: Eval and Treat Occupational Therapy: Eval and Treat Problem/Diagnosis (1) Acute, mixed level of activity, alcohol withdrawal delirium: Status: Acute (2) Alcohol dependence: Status: Chronic Allergies/Procedures Done in Hospital Allergies No Known Allergies Allergy (Verified 08/31/20 12:28) Type of Care/Length of Stay Estimated LOS: Convalescent Care Less Than 30 days Type of Care Needed: Skilled Rehab Potential: Good Prognosis: Good Additional Orders/Day of Discharge Day of Discharge: 09/06/20 Dietary and Speech Recommendations Dietitian Recommendations/Changes: Continue regular diet as tolerated; no GI symptoms reported currently so will defer restricting fiber at this time. Will add 120mL Ensure Enlive 4x/day for additional calories/protein if consumed. Discharge Plan Admission Admit Date/Time: 08/31/20 18:27 Attending Provider: Nikunj Doherty Primary Care Provider: Marianne Olivares PSYCHOLOGIST COUNSELING Discharge Orders/Prescriptions Prescriptions: New loperamide 2 mg Capsule 2 mg PO Q4H PRN PRN (Reason: LOOSE STOOLS) Qty: 10 RF: 0 thiamine HCl (vitamin B1) [Vitamin B-1] 100 mg Tablet 100 mg PO DAILYCM Qty: 90 RF: 0 potassium chloride [Klor-Con M20] 20 mEq Tablet,Er Particles/Crystals 40 meq PO DAILYCM Qty: 60 RF: 0 pantoprazole 40 mg Tablet,Delayed Release (Dr/Ec) 40 mg PO BID Qty: 60 RF: 0 folic acid 1 mg Tablet 1 mg PO DAILY@0800 Qty: 30 RF: 0 dicyclomine 10 mg Capsule 20 mg PO Q6H PRN PRN (Reason: abdominal discomfort) Qty: 7 RF: 0 hydroxyzine pamoate 25 mg Capsule 50 mg PO Q4H PRN PRN (Reason: mild anxiety) Qty: 30 RF: 0 potassium, sodium phosphates [Phos-NaK] 280-160-250 mg Powder In Packet 1 packet PO 4X/DAY Qty: 100 RF: 0 magnesium chloride [Mag 64] 64 mg Tablet,Delayed Release (Dr/Ec) 128 mg PO BID Qty: 30 RF: 0 Ensure Enlive 0.08 gram-1.5 kcal/mL Liquid 120 ml PO 4X/DAY 30 Days RF: 0 Continued omeprazole magnesium 20 MG tablet,delayed release (DR/EC) 20 mg PO DAILY RF: 0 aosuobqr-burrl-bftda-CF borate 1 EACH tablet 3 ea PO DAILY RF: 0 Discontinued ibuprofen 200 MG tablet 600 mg PO PRN PRN (Reason: Pain Or Fever) RF: 0 Referrals / Follow Up: Marianne Olivares NP, PSYCHOLOGIST COUNSELING-C [Primary Care Provider] - Within 2 Weeks Disposition Disposition (needs filled in before D/C Order can be placed): [facility]
--- NOTE | 2020-09-06 10:34 | DS.PCM_ITS ---
Providers Date of Admission: 08/31/20 Primary Care Physician: ENMA Luis Reason For Visit: ACUTE ALCOHOL WITHDRAWAL, SIGMOID DIVERTICULIITS Diagnosis Discharge Diagnosis (1) Acute, mixed level of activity, alcohol withdrawal delirium: Status: Acute Code(s): F10.231 - Alcohol dependence with withdrawal delirium (2) Alcohol dependence: Status: Chronic Code(s): F10.20 - Alcohol dependence, uncomplicated Medications at Discharge Home Medications yioocdsd-cwrzt-ovudh-CF borate 3 ea PO DAILY 12/06/19 omeprazole magnesium 20 mg PO DAILY 12/06/19 dicyclomine 20 mg PO Q6H PRN PRN #7 cap 09/06/20 folic acid 1 mg PO DAILY@0800 #30 tab 09/06/20 food supplemt, lactose-reduced [Ensure Enlive] 120 ml PO 4X/DAY 30 Days ml 0 09/06/20 hydroxyzine pamoate 50 mg PO Q4H PRN PRN #30 cap 09/06/20 loperamide 2 mg PO Q4H PRN PRN #10 cap 09/06/20 magnesium chloride [Mag 64] 128 mg PO BID #30 tab 09/06/20 pantoprazole 40 mg PO BID #60 tab 09/06/20 potassium chloride [Klor-Con M20] 40 meq PO DAILYCM #60 tab 09/06/20 potassium, sodium phosphates [Phos-NaK] 1 packet PO 4X/DAY #100 ea 09/06/20 thiamine HCl (vitamin B1) [Vitamin B-1] 100 mg PO DAILYCM #90 tab 09/06/20 Hospital Course Summary of Care Provided Minutes Spent on Discharge: 35 Hospital Course: Patient is a 54-year-old gentleman with history of chronic alcohol dependence admitted with acute alcohol withdrawal. Admitted to regular nursing floor where patient is currently being managed. 1. Acute alcohol withdrawal ?In the patient with chronic alcohol dependence. Patient presented with acute alcohol withdrawal stated above admitted to regular nursing floor where patient is currently being managed with phenobarb taper -09/05/2020 remains relatively stable 2. Acute alcoholic hepatitis with significant hyperbilirubinemia ?Gallbladder ultrasound demonstrated fatty liver. Monitoring liver function test 3. Hypokalemia -Corrected per protocol 4. Hypomagnesemia -Corrected for protocol -09/05/2020; magnesium down to 1.3 did administer IV magnesium sulfate and p.o. magnesium chloride 5. Anemia - Secondary to chronic disorder monitoring H&H and transfuse if patient becomes symptomatic or hemoglobin falls below 7 7. Mild sigmoid diverticulitis -Based on CT findings patient managed with Cipro and metronidazole 8. Gallstones without evidence of acute cholecystitis ?Patient remains asymptomatic 9. BPH 10. Severe protein calorie malnutrition ?Secondary to chronic alcohol use as well as decreased oral intake patient has been seen in consultation by dietitian 11. Tobacco dependence - Counseled on cessation, offered nicotine patch for tobacco cravings 12. Physical deconditioning - Requested for PT OT eval and bilingual social worker to assist with discharge planning -09/05/2020; insurance precert pending 13. DVT prophylaxis ?Did encourage early ambulation avoided the use of chemoprophylaxis in view of thrombocytopenia present on admission Physical Exam Narrative GENERAL: cooperative HEENT: Atraumatic; EYES; Icteric, NECK; supple, normal thyroid, RESPIRATORY: Diminished to auscultation CARDIOVASCULAR:? Regular S1 S2, GI:? soft, normoactive bowel sounds, : No Renal angle tenderness; SKIN:? No Rash PSYCH; Flat? affect ABG / Lab / Microbiology Data Result Diagrams: 09/06/20 05:20 09/06/20 05:20 Laboratory: Laboratory Results - last 24 hr 09/06/20 09/06/20 05:20 05:20 WBC 7.0 RBC 2.47 L Hgb 8.6 L Hct 26.1 L MCV 105.7 H MCH 34.8 H MCHC 33.0 RDW Std Deviation 82.3 H RDW Coeff of Adia 21.7 H Plt Count 170 MPV 10.4 Neut % (Auto) Not Reportable Absolute Neuts (auto) 4.9 Absolute Lymphs (auto) 1.40 Total Counted 100 Neutrophils % (Manual) 62 Band Neutrophils % 8 H Lymphocytes % (Manual) 20 Monocytes % (Manual) 7 Metamyelocytes % 3 H Diff Path Review May foll Platelet Estimate ADEQUATE RBC Morphology N CYTIC Hypochromasia 1+ Sodium 132 L Potassium 4.2 Chloride 101 Carbon Dioxide 24.0 Anion Gap 7 BUN 3 L Creatinine 0.50 L Estim Creat Clear Calc 148.87 Est GFR (MDRD) Af Amer 221 Est GFR (MDRD) Non-Af 183 BUN/Creatinine Ratio 5.9 L Glucose 87 Calcium 7.8 L Total Bilirubin 10.50 H AST 96 H ALT 25 Alkaline Phosphatase 163 H Total Protein 4.7 L Albumin 1.8 L Globulin 2.9 Albumin/Globulin Ratio 0.6 L Microbiology: Microbiology 09/03/20 05:15 Stool Stool Occult Blood (DOMINIQUE) - Final D/C Instructions Discharge Diet: No restrictions Meaningful Use Info Meaningful Use Diagnoses (Choose all that apply): None applicable Discharge Plan Admission Admit Date/Time: 08/31/20 18:27 Attending Provider: Nikunj Doherty Primary Care Provider: Marianne Olivares FIRE EXTINGUISHER INSTALLER Discharge Orders/Prescriptions Prescriptions: New loperamide 2 mg Capsule 2 mg PO Q4H PRN PRN (Reason: LOOSE STOOLS) Qty: 10 RF: 0 thiamine HCl (vitamin B1) [Vitamin B-1] 100 mg Tablet 100 mg PO DAILYCM Qty: 90 RF: 0 potassium chloride [Klor-Con M20] 20 mEq Tablet,Er Particles/Crystals 40 meq PO DAILYCM Qty: 60 RF: 0 pantoprazole 40 mg Tablet,Delayed Release (Dr/Ec) 40 mg PO BID Qty: 60 RF: 0 folic acid 1 mg Tablet 1 mg PO DAILY@0800 Qty: 30 RF: 0 dicyclomine 10 mg Capsule 20 mg PO Q6H PRN PRN (Reason: abdominal discomfort) Qty: 7 RF: 0 hydroxyzine pamoate 25 mg Capsule 50 mg PO Q4H PRN PRN (Reason: mild anxiety) Qty: 30 RF: 0 potassium, sodium phosphates [Phos-NaK] 280-160-250 mg Powder In Packet 1 packet PO 4X/DAY Qty: 100 RF: 0 magnesium chloride [Mag 64] 64 mg Tablet,Delayed Release (Dr/Ec) 128 mg PO BID Qty: 30 RF: 0 Ensure Enlive 0.08 gram-1.5 kcal/mL Liquid 120 ml PO 4X/DAY 30 Days RF: 0 Continued omeprazole magnesium 20 MG tablet,delayed release (DR/EC) 20 mg PO DAILY RF: 0 txtkjzud-ytygm-vmboh-CF borate 1 EACH tablet 3 ea PO DAILY RF: 0 Discontinued ibuprofen 200 MG tablet 600 mg PO PRN PRN (Reason: Pain Or Fever) RF: 0 Referrals / Follow Up: Marianne Olivares FIRE EXTINGUISHER INSTALLER, FIRE EXTINGUISHER INSTALLER-C [Primary Care Provider] - Within 2 Weeks Disposition Disposition (needs filled in before D/C Order can be placed): [facility] Visit Charges Inpatient E&M: [id number] Disch Hosp
--- NOTE | 2020-09-06 12:29 | CASEMGMT ---
Addendum entered by Danita Ann 09/06/20 13:00: Return call from [facility] and updated on pt discharge disposition. TATYANA Portillo Addendum entered by Danita Ann 09/06/20 12:38: With pt permission, phone call to his [facility] to update on discharge plan. SW left generic requesting return call. TATYANA Portillo Original Note: Social Work Per physician, pt is ready for discharge today. Convalescent exemption form 3330 completed in [employer] system, orders faxed to [facility] and pt updated on discharge. Pt is agreeable to discharge to [facility] and is aware that transportation will be arranged. Transportation set up with [facility] for 1430 cot pickup. Facility notified and nursing made aware of discharge plan. TATYANA Portillo
[2020-09-06 13:24] LABS: Pathologist Review Reviewed
--- NOTE | 2020-09-06 13:34 | NURSING ---
report called to braeden at [facility]. transport to pick pt up via cot at 1430
== END 2020-09-06 14:44 | disposition skilled nursing facility (03) | DRG 896 ==
LOC: ED 18:15 → MS3 09-01 04:22
PROVIDERS: Emergency Medicine; Internal Medicine; Physician Assistant; Admitting Provider Hospitalist; Emergency Provider Emergency Medicine; PCP Registered Nurse; Visit Provider Internal Medicine
DX: F10.231 Alcohol dependence with withdrawal delirium (principal); E43 Unspecified severe protein-calorie malnutrition; K57.32 Diverticulitis of large intestine without perforation or abscess without bleeding; E87.1 Hypo-osmolality and hyponatremia; F10.229 Alcohol dependence with intoxication, unspecified; K70.10 Alcoholic hepatitis without ascites; Y90.6 Blood alcohol level of 120-199 mg/100 ml; K76.0 Fatty (change of) liver, not elsewhere classified; E87.6 Hypokalemia; E83.42 Hypomagnesemia; N40.0 Benign prostatic hyperplasia without lower urinary tract symptoms; F17.200 Nicotine dependence, unspecified, uncomplicated; D63.8 Anemia in other chronic diseases classified elsewhere; K80.20 Calculus of gallbladder without cholecystitis without obstruction; E16.2 Hypoglycemia, unspecified; D53.9 Nutritional anemia, unspecified; Z91.81 History of falling; Z79.899 Other long term (current) drug therapy; Z68.21 Body mass index [BMI] 21.0-21.9, adult
CPT/HCPCS: 36415; 70450; 74177; 76705; 80048; 80053; 80074; 80076; 80307; 80329; 82009; 82077; 82247; 82248; 82274; 82607; 82728; 82747; 83010; 83550; 83615; 83690; 83735; 84100; 85014; 85025; 85610; 86850; 86900; 86901; 86920; 86922; 87426; 93005; 97110; 97162; 97165; 97530; 97535; 99285; J7030; J7040; J7050; P9016; Q9967; A4216; G0480; J0744; J3490